=== PATIENT | female | born 1930 | race Caucasian/White ===

== ENCOUNTER 2017-12-25 06:32 | Day surgery (SDC) | payer MEDICARE ==
[~2017-12-25] VITALS: Ht 157.5 cm; Wt 92.8 kg
[~2017-12-25 06:32] MED LIST: ALBU8I INH; ALLO100T PO; ALPR0.25 PO; CARD120C4 PO; ENAL20TA PO; FURO20TA PO; HYDR-3580 PO; K-TA10TA5 PO; LEVO150T46 PO; METO50TA PO; NIAC500T18 PO; PARO20TA PO; RANI150T PO; VITA20002 PO
[2017-12-25] MEDS ORDERED: IOHEXOL 350 MG/ML 10 ML VIAL (for RAD DIAG) IVCONTRAST ONE (06:33)
[2017-12-25] MEDS ORDERED: IOHEXOL 350 MG/ML 50 ML BTL (for Cath Lab) OTHER ONE (06:33)
[2017-12-25 07:13] VITALS: BP 169/81; PULSE 60; RESP 20; TEMP 98.5; O2SAT 92
[2017-12-25] MEDS ORDERED: OXYGEN NAS.CANULA (07:45)
[2017-12-25] MEDS ORDERED: CART120C PO (07:45)
[2017-12-25] MEDS ORDERED: ENOX30P SQ (07:45)
[2017-12-25] MEDS ORDERED: VENTAER INH (07:45)
[2017-12-25] MEDS ORDERED: LEVO125T4 PO (07:45)
[2017-12-25] MEDS ORDERED: ALBU.5I NEB (07:45)
[2017-12-25] MEDS ORDERED: ALPR0.25 PO (07:45)
[2017-12-25] MEDS ORDERED: METO50TA PO (07:45)
[2017-12-25] MEDS ORDERED: POTA10TA2 PO (07:45)
[2017-12-25] MEDS ORDERED: VITATAB43 PO (07:45)
[2017-12-25] MEDS ORDERED: WARF4TAB52 PO (07:45)
[2017-12-25] MEDS ORDERED: ALLO300T2 PO (07:45)
[2017-12-25] MEDS ORDERED: UMEC1INH INH (07:45)
[2017-12-25] MEDS ORDERED: FURO20TA PO (07:45)
[2017-12-25] MEDS ORDERED: WARF-58 PO (07:45)
[2017-12-25] MEDS ORDERED: RANI150T PO (07:45)
[2017-12-25] MEDS ORDERED: LISI-515 PO (07:45)
[2017-12-25] MEDS ORDERED: VITA2000 PO (07:45)
[2017-12-25] MEDS ORDERED: WARF4TAB51 PO (07:45)
[2017-12-25] MEDS ORDERED: PARO20TA2 PO (07:45)
[2017-12-25] MEDS ORDERED: IPRA0.06 (07:45)
--- NOTE | 2017-12-25 08:17 | PD.FRAIL ---
Date: Dec 25, 2017 Height: 157.48 cm Weight: 92.8 kg Assessment Performed: Outpatient Albumin 3.2 Hart Activities Daily Living Hart ADL Score: Bathing(bathes self/help in single area): [place] (1), Dressing(gets/puts clothes on self): [place] (1), Toileting(goes without help): [place] ( 1), Transferring(unassisted or mech aides): [place] (1), Continence( complete self-control): [place] (1), Feeding(self, prep by another allowed) : [place] (1), Total: 6 Pass/Fail: Pass (LIVE ALONE, STILL DRIVES) Accounts Payable Bookkeeper Strength Grasp 1: 14 Grasp 2: 18 Grasp 3: 18 Average: 16.7 Pass/Fail: Fail 15-Foot Walk 15-Foot Walk (seconds): 10.2 (USES WALKING CANE) Pass/Fail: Fail Total Frailty Total Frailty (out of 4): 3 Frailty Index Score Reference Accounts Payable Bookkeeper Strength: BMI: <=23 Cutoff for associate professor physician strength(Kg): <=17 BMI: 23.1-26 Cutoff for associate professor physician strength(Kg): <=17.3 BMI: 26.1-29 Cutoff for associate professor physician strength(Kg): <=18 BMI: >29 Cutoff for associate professor physician strength(Kg): <=21 15-Foot Walk: Height: <=159 cm 15-Foot Walk Cutoff Time: >=7 seconds Height: >159 cm 15-Foot Walk Cutoff Time: >=6 seconds Prudence Chan RN Dec 25, 2017 08:17
--- NOTE | 2017-12-25 09:23 | RADRPT ---
EXAM DATE/TIME: 12/25/2017 08:25 [facility] COMPARISON: No previous studies available for comparison. INDICATIONS : Evaluate for pneumonia, pneumothorax and communicative disease. Pre-op for cardiac catherization. MEDICAL HISTORY : Hypertension. Chronic obstructive pulmonary disease. SURGICAL HISTORY : Total left hip arthroplasty. Left rib resection. Left kidney stone removal. ENCOUNTER: Initial ACUITY: 1 day PAIN SCORE: 0/10 LOCATION: chest FINDINGS: A single view of the chest demonstrates the lungs to be symmetrically aerated without evidence of mas s, infiltrate or effusion. There is hyperaeration bilaterally. The heart size is enlarged. There is a pacemaker overlying the left chest.. Osseous structures are intact. CONCLUSION: 1. No acute intrathoracic disease. 2. Hyperaeration suggestive of COPD 3. Compensated cardiomegaly Sal Hugo MD on December 25, 2017 at 9:21 Board Certified Radiologist. This report was verified electronically.
[2017-12-25] MEDS ORDERED: HEPARIN-NS/PF FLUSH BAG 2,000 ML IV FLUSH ONE (10:12)
[2017-12-25] MEDS ORDERED: NITROGLYCERIN INJ 0 ML ONE (10:12)
[2017-12-25] MEDS ORDERED: HEPARIN SODIUM - IV 10,000 UNITS/10 ML VIAL ONE (10:12)
[2017-12-25] MEDS ORDERED: SODIUM CHLOR 0.9% 250 ML INJ 250 ML IV PRN (11:00)
[2017-12-25] MEDS ORDERED: LORazepam 2 MG/ML VIAL IV PUSH PRN (11:00)
[2017-12-25] MEDS ORDERED: ATROPINE SULFATE 1 MG/ML VIAL IV PUSH PRN (11:00)
[2017-12-25] MEDS ORDERED: METOCLOPRAMIDE HCL 10 MG/2 ML VIAL IV PUSH PRN (11:00)
[2017-12-25] MEDS ORDERED: LIDOCAINE HCL 1% 50 ML VIAL INFIL PRN (11:00)
--- NOTE | 2017-12-25 11:27 | MA ---
cc: Rolando Quispe MD DATE: 12/25/2017 INDICATION: Aortic stenosis. PROCEDURES PERFORMED: 1. Fluoroscopy with interpretation. 2. Coronary angiography. 3. Right heart catheterization. METHOD: The risks, benefits and alternatives discussed with the patient. The patient understood and consented to the procedure. The patient was brought into the catheterization labs and placed on the catheterization table. The right groin was prepped and draped in a sterile fashion. The right groin was anesthetized with 2% lidocaine. The right common femoral artery was cannulated and a 5-[place] 11 cm sheath was placed in the right femoral artery, 7-[place] 11 cm sheath was placed in the right femoral vein. RIGHT HEART CATHETERIZATION: A 7-[place] pulmonary arterial catheter was advanced to the right femoral venous sheath to the level of the right atrium under fluoroscopic guidance. Hemodynamics was performed in all chambers as well advanced into the pulmonary capillary wedge position: 1. Right atrial pressure measure at 17. 2. Right ventricular pressure measured at 62/0 mmHg. 3. Pulmonary arterial pressure measured 59/25 mmHg. 4. Pulmonary capillary wedge pressure measured at 20 mmHg. 5. Cardiac output 4.2 liters per minute. 6. Cardiac index 2.2 liters per minute per meter squared. CORONARY ANGIOGRAPHY: 1. Left main coronary is angiographically normal. 2. Left anterior descending coronary has a 50% eccentric stenosis proximally. The remainder of the vessel has mild luminal irregularities. Diagonal branch had mild luminal irregularities. 3. Left circumflex gives rise to an obtuse marginal branch with minor luminal irregularities. 4. The right coronary is a dominant vessel giving rise to a posterior descending branch. The right coronary has mild luminal irregularities. 5. He has mild to moderate proximal nonobstructive left anterior descending coronary stenosis. 6. Mildly elevated left and right-sided filling pressures with moderate to severe pulmonary hypertension and mildly reduced cardiac output and index. PLAN: We will consult cardiothoracic surgery for evaluation for surgical AVR versus transcatheter aortic valve replacement. Rolando Quispe MD MAN/DL , 11:05 AM , 11:26 AM
[2017-12-25] MEDS ORDERED: ONDANSETRON HCL 4 MG/2 ML VIAL IV PUSH PRN (12:00)
[2017-12-25] MEDS ORDERED: BACITRACIN OINT 0.9 GM PKT TOP ONE (12:00)
[2017-12-25] MEDS ORDERED: RESP: ALBUTEROL 2.5 MG/3 ML NEB (PRN) ONE (12:09)
[2017-12-25] MEDS ORDERED: RESP: ALBUTEROL 2.5 MG/3 ML NEB (PRN) NEB (12:30)
--- NOTE | 2017-12-25 16:20 | PD.CAR.PN ---
CVT Progress Note Subjective/Hospital Course: pt seen and evaluated, sts data discussed with pt/ full consult to follow RISK SCORES About the STS Risk Calculator Procedure: AV Replacement Risk of Mortality: 6.679% Morbidity or Mortality: 27.525% Long Length of Stay: 15.751% Short Length of Stay: 10.472% Permanent Stroke: 2.49% Prolonged Ventilation: 20.181% DSW Infection: 0.336% Renal Failure: 7.24% Reoperation: 9.21% Objective: Vital Signs Date Time Temp Pulse Resp B/P (MAP) Pulse Ox O2 Delivery O2 Flow Rate FiO2 12/25/17 11:15 94 Nasal Cannula 2.00 12/25/17 07:13 98.5 60 20 169/81 (110) 92 Labs: Laboratory Tests Test 12/25/17 09:00 12/25/17 11:25 Albumin 3.2 GM/DL (3.4-5.0) Nasal Screen MRSA (PCR) MRSA NOT DETECTED (NOT Aurora Simmons Dec 25, 2017 16:20
--- NOTE | 2017-12-25 17:10 | MB ---
cc: Aurora Simmons DATE: 12/25/2017 HISTORY OF PRESENT ILLNESS: An 87-year-old female patient of Dr. Roly Schaeffer and Dr. Rolando Quispe who has history of aortic stenosis with increasing shortness of breath and lightheadedness for the past year, worsening aortic valve area. The last aortic valve area was 0.8, mean gradient of 46, a peak gradient of 66. The patient does live alone. She is not very active. She does still drive. She uses a walker and sometimes a cane. She underwent cardiac catheterization today, which showed nonobstructive disease. She did have a 50% stenosis in the LAD with an EF of 60%. We were consulted to evaluate for aortic valve replacement versus transcatheter aortic valve replacement. Her last echo also showed moderate tricuspid regurgitation and mild mitral regurgitation. PAST MEDICAL HISTORY: Paroxysmal atrial fibrillation, aortic stenosis, hypertension; she has a dual-chamber pacemaker with tachy-nasra syndrome, therefore the pacer in situ; history of pulmonary emboli, DVT. She has been on Eliquis. She has recently been on the Lovenox, will need a Lovenox bridge for any TAVR workup. Other history includes COPD, degenerative disk disease, gastroesophageal reflux disease, hyperlipidemia, hypothyroidism, osteopenia, history of transient ischemic attack. PAST SURGICAL HISTORY: Anal fistulectomy. She has had a breast biopsy, skin biopsy. She has had a right knee patella fracture repair, colonoscopy, right middle finger surgery, hysterectomy, lithotripsy. SOCIAL HISTORY: She is , has a daughter that lives in [place], igoron that lives in [place]. She did smoke for about 30 years. She quit 20 years ago. ALLERGIES: INCLUDE ZITHROMAX. HOME MEDICATIONS: Include Ellipta, Ventolin, Albuterol. She has currently been on the Lovenox since she was on Coumadin at home to bridge for her catheterization today, metoprolol, Diltiazem, lisinopril, Paxil, Xanax, potassium, Lasix, Zantac, levothyroxine, allopurinol. REVIEW OF SYSTEMS: GENERAL: No night sweats, fever, heat and cold intolerance. SKIN: No psoriasis, itching or hives. HEENT: No blurred vision, hearing loss. RESPIRATORY: Positive for shortness of breath. CARDIOVASCULAR: No chest pain. No paroxysmal nocturnal dyspnea. She has chronic lower extremity edema. GASTROINTESTINAL: No diarrhea or vomiting. GENITOURINARY: No burning, frequency, urgency. CENTRAL NERVOUS SYSTEM: History of transient ischemic attack. ENDOCRINOLOGY: Positive for hypothyroidism. PHYSICAL EXAMINATION: VITAL SIGNS: Blood pressure 160/80, heart rate is 60, temperature max 98.5, O2 saturation 94 on 2 liters. GENERAL: The patient is awake, alert, in no acute distress. HEENT: Head is normocephalic, atraumatic. Pupils equal and reactive. Oral mucosa pink, moist. NECK: Supple. No JVD. HEART: Sounds S1, S2, with a grade II/ systolic murmur best heard on the left sternal border. LUNGS: Clear to auscultation. No wheezes, rales or rhonchi. ABDOMEN: Obese, soft, nontender, no masses or organomegaly. EXTREMITIES: Reveal trace edema with some chronic venous stasis. LABORATORY WORK: Shows albumin 3.2, sodium 144, potassium 4.5, BUN of 15, creatinine 0.90, glucose 99, calcium 9.7. Hemoglobin 12, hematocrit of 38, white cell count of 8, platelet count of 295. STS risk score is 6.79. IMAGING STUDIES: Chest x-ray: No acute intrathoracic disease, suggestion of COPD, cardiomegaly. IMPRESSION: This is an 87-year-old female with STS risk score of 6.6. Her comorbidities include obesity, limited mobility, congestive heart failure, severe aortic stenosis, paroxysmal atrial fibrillation, hypertension, also chronic obstructive pulmonary disease. PLAN: At this time, recommendation is for transcatheter aortic valve replacement. The patient will need also be seen by our partner, Dr. Truong for further evaluation. A TAVR scan is also pending. ARTEMIO Jordan MD JRT/KEVIN , 04:28 PM , 05:08 PM
[2017-12-25 20:04] LABS: BILIRUBIN, URINE NEG (NEG); BLOOD, URINE NEG (NEG); GLUCOSE,URINE NEG (NEG); KETONE, URINE NEG (NEG); NITRITE,URINE NEG (NEG); SQUAMOUS EPITHELIAL CELL URINE 1 /hpf (0-5); URINE COLOR YELLOW (YELLW/STRAW); URINE LEUKOCYTE ESTERASE NEG (NEG)
--- NOTE | 2017-12-25 23:38 | RADRPT ---
EXAM DATE/TIME: 12/25/2017 17:49 [facility] COMPARISON: No previous studies available for comparison. INDICATIONS : Evaluate aortic valve IV CONTRAST: 90 cc Omnipaque 350 (iohexol) IV RADIATION DOSE: 12.29 CTDIvol (mGy) MEDICAL HISTORY : Cardiovascular disease. Hypertension. Chronic obstructive pulmonary disease.Asthma SURGICAL HISTORY : Pacemaker. ENCOUNTER: Initial ACUITY: 1 day PAIN SCALE: 0/10 LOCATION: CTA TAVRS TECHNIQUE: Volumetric scanning was performed using a multi-row detector CT scanner. The data was post processed with a variety of visualization algorithms including full volume maximum intensity projection, multi -planar sliding thin slab reformation, curved planar reformation, and surface rendering techniques. Using automated exposure control and adjustment of the mA and/or kV according to patient size, radiat ion dose was kept as low as reasonably achievable to obtain optimal diagnostic quality images. DIC OM format image data is available electronically for review and comparison. FINDINGS: CARDIAC: The coronary system is right dominant. There is calcification of the left main coronary artery and t he LAD. There is calcification at the origin of the right coronary artery. Otherwise the coronary ves sels appear grossly intact. Aortic valve calcifications are present. AORTIC ROOT/VALVE: 3 cusps are evident with calcifications. The aortic root measures 3.4 cm. Mid thoracic descending aorta measures 3.4 cm with calcifications. THORACIC AORTA: Origin of the great vessels is normal. No evidence of aneurysm, mural thrombus, dissection, or steno sis. Calcifications are present. ABDOMINAL AORTA: No evidence of aneurysm, mural thrombus, dissection, or stenosis. Arterial calcifications are seen th roughout. CELIAC ARTERY: Celiac artery is widely patent. SMA: Superior mesenteric artery is widely patent. RIGHT RENAL ARTERY: Right renal artery is widely patent. LEFT RENAL ARTERY: Left renal artery is widely patent. RIGHT COMMON ILIAC: No evidence of aneurysm, mural thrombus, dissection, mural calcification, or stenosis. The common fe moral measures 8 mm. LEFT COMMON ILIAC: No evidence of aneurysm, mural thrombus, dissection, mural calcification, or stenosis. The common fe moral measures 9 mm. There is mild calcified plaque at the left common femoral artery THORAX: There is mild linear atelectasis or scarring at the posterior lower lobes. There is a pacemaker in pl rachel. ABDOMEN: There is a 4.1 cm low density mass at the lateral aspect of the liver likely related to cystic change . There is a 5 cm enhancing mass seen at the inferior lateral aspect the right lobe of the liver. The re is mild cystic change of the kidneys PELVIS: There is a 6.7 cm cystic mass of the left adnexa. The patient status post hysterectomy. Diverticula s een throughout the colon being most prominent in the sigmoid region. There is a left hip prosthesis p resent. CONCLUSION: 1. Atherosclerotic calcifications seen throughout. Including at the left main, LAD, and at the origin of the right coronary artery. 2. Aortic valve calcifications. 3. No aneurysm or significant narrowing of the aorta, common iliac, external iliac, or common femora l arteries is seen. 4. 5 cm enhancing hepatic mass. This is nonspecific. There is transient enhancement could have this a ppearance. Other masses including hepatocellular carcinoma could have this appearance. There does gabriela ear to be cystic change of the liver. 5. 6.7 cm cyst of the left adnexa likely related to a left ovarian cyst. 6. Colonic diverticula. Domingo Panchal MD on December 25, 2017 at 23:23 Board Certified Radiologist. This report was verified electronically.
--- NOTE | 2017-12-26 08:37 | RSPPFT ---
DATE OF PROCEDURE: 12/25/17 COMMENTS: Spirometry with FVC of 1.0 predicted 2.1, FEV1 of 0.5 predicted 1.3, FEV1/FVC ratio 52% predicted 80%. IMPRESSION: On the basis of the above, patient has an obstructive lung defect. Post-bronchodilator values and lung volumes have not been measured but if clinically indicated can be carried out to rule out an associated restrictive defect.
== END 2017-12-25 19:30 | disposition home or self-care (01) ==
LOC: HCAT 06:32 → HDIC 06:32 → HCAT 19:30
PROVIDERS: ATTEND Internal Medicine
DX: I35.0 Nonrheumatic aortic (valve) stenosis (principal); I25.10 Atherosclerotic heart disease of native coronary artery without angina pectoris; I11.0 Hypertensive heart disease with heart failure; I50.9 Heart failure, unspecified; I48.0 Paroxysmal atrial fibrillation; E78.5 Hyperlipidemia, unspecified; E03.9 Hypothyroidism, unspecified; J44.9 Chronic obstructive pulmonary disease, unspecified; K21.9 Gastro-esophageal reflux disease without esophagitis; K57.30 Diverticulosis of large intestine without perforation or abscess without bleeding; M85.80 Other specified disorders of bone density and structure, unspecified site; E66.9 Obesity, unspecified; Z68.37 Body mass index [BMI] 37.0-37.9, adult; Z86.711 Personal history of pulmonary embolism; Z79.01 Long term (current) use of anticoagulants; Z86.73 Personal history of transient ischemic attack (TIA), and cerebral infarction without residual deficits; Z95.0 Presence of cardiac pacemaker; Z90.710 Acquired absence of both cervix and uterus
CPT/HCPCS: 71045; 74174; 81001; 82040; 82810; 86850; 86900; 86901; 87641; 93456; 94010; 94664; C1760; C1769; C1893; G0269; J1644; J7613; Q9967

== ENCOUNTER 2018-01-14 11:30 | Inpatient (IN) | payer MEDICARE ==
[~2018-01-14] VITALS: Ht 154.9 cm; Wt 90.0 kg
[~2018-01-14 11:30] MED LIST changes: +ALBU.5I NEB; -ALBU8I INH; -ALLO100T PO; +ALLO300T2 PO; -CARD120C4 PO; +CART120C PO; -ENAL20TA PO; -HYDR-3580 PO; +IPRA0.06; -K-TA10TA5 PO; +LEVO125T4 PO; -LEVO150T46 PO; +LISI-515 PO; -NIAC500T18 PO; +OXYGEN NAS.CANULA; -PARO20TA PO; +PARO20TA2 PO; +POTA10TA2 PO; +UMEC1INH INH; +VENTAER INH; +VITA2000 PO; -VITA20002 PO; +VITATAB43 PO; +WARF-58 PO; +WARF4TAB51 PO
[2018-02-26] MEDS ORDERED: ENOX100P SQ (10:32)
[2018-03-11 11:20] VITALS: BP 156/78; PULSE 61; RESP 18; O2SAT 97
[2018-03-11] MEDS: SODIUM CHLOR 0.9% 1000 ML 1,000 ML IV SCH ×2 (11:30→20:55)
[2018-03-11] MEDS ORDERED: POVIDONE IODINE 5% (ANTISEPSIS KIT) EACH NARE PRN (11:30)
[2018-03-11] MEDS ORDERED: ceFAZolin 2 GM PREMIX 50 ML IV PRN (11:30)
[2018-03-11] MEDS ORDERED: ASPIRIN 325 MG TAB PO SCH (11:30)
[2018-03-11] MEDS ORDERED: CHLORHEXIDINE GLUCONATE 2 % 1 PACK (2 CLOTHS) TOPICAL PRN ×2 (11:30→11:45)
[2018-03-11] MEDS ORDERED: MUPIROCIN 2% OINT 1 APPLIC/GM SYRINGE EACH NARE PRN (11:30)
[2018-03-11] MEDS ORDERED: LACTATED RINGER'S 1000 ML IV PRN (11:45)
[2018-03-11] MEDS ORDERED: METOPROLOL TARTRATE 25 MG TAB PO PRN (11:45)
[2018-03-11] MEDS ORDERED: POVIDONE IODINE 5% (ANTISEPSIS KIT) 4 APPLICATIONS EACH NARE PRN (11:45)
[2018-03-11] MEDS ORDERED: SODIUM CHLORID 0.9% 500 ML IV PRN (11:45)
[2018-03-11] MEDS ORDERED: NEOSTIGMINE 5 MG/5 ML SYRINGE IV PUSH ONE (12:00)
[2018-03-11] MEDS ORDERED: ePHEDrine/NS 25 MG/5 ML SYRINGE IV ONE (12:00)
[2018-03-11] MEDS ORDERED: EPINEPHrine HCL (1:1000) 1 MG/ML VIAL IV ONE (12:00)
[2018-03-11] MEDS ORDERED: GLYCOPYRROLATE 1 MG/5 ML SYRINGE IV PUSH ONE (12:00)
[2018-03-11] MEDS ORDERED: ROCURONIUM INJ 50 MG/5 ML SYRINGE IV PUSH ONE (12:00)
[2018-03-11] MEDS ORDERED: PROPOFOL 200 MG/20 ML AMP IV ONE (12:00)
[2018-03-11] MEDS ORDERED: PHENYLEPH/NS 1000 MCG/10 ML SYR IV ONE (12:00)
[2018-03-11] MEDS ORDERED: HEPARIN SODIUM - IV 10,000 UNITS/10 ML VIAL ONE (12:32)
[2018-03-11] MEDS ORDERED: PROTAMINE SULFATE 50 MG/5 ML VIAL ONE (12:32)
[2018-03-11] MEDS ORDERED: fentaNYL CITRATE 250 MCG/5 ML AMP ONE (12:50)
--- NOTE | 2018-03-11 13:24 | MH ---
cc: Rolando Quispe MD DATE OF ADMISSION: 03/11/2018 INDICATION: Aortic stenosis. INDICATIONS: Aortic stenosis. HISTORY OF PRESENT ILLNESS: This is an 87-year-old female. She has a history of pacemaker, COPD, atrial fibrillation on anticoagulation therapy, who was evaluated secondary to severe aortic valve stenosis and recommended for transcatheter aortic valve replacement. She also was found to have a liver mass incidentally and underwent biopsy which showed a hepatocellular carcinoma. She was then evaluated by oncology and felt to have a life expectancy greater than 1 year and recommended to proceed with transcatheter aortic valve replacement. She is now here for that procedure. PAST MEDICAL HISTORY: 1. Severe aortic valve stenosis. 2. Tachybrady syndrome, status post permanent pacemaker. 3. COPD. 4. Chronic kidney disease. 5. Pulmonary embolism. 6. Hypothyroidism. 7. Diverticulosis. 8. Atrial fibrillation. 9. Anxiety. 10. GERD. 11. Hypertension. 12. Osteoarthritis. 13. Hypothyroidism. 14. Hepatocellular carcinoma. MEDICATIONS: 1. Coumadin. 2. Ranitidine. 3. Paroxetine. 4. Metoprolol. 5. Lisinopril. 6. Levothyroxine. 7. Ipratropium. 8. Furosemide. 9. Cardia-XT. 10. Allopurinol. ALLERGIES: AZITHROMYCIN. FAMILY HISTORY: Denies any family history of early coronary disease or sudden cardiac . SOCIAL HISTORY: Smoked 40 years ago a pack a day. Also smoked for 40 years, but quit 20 years ago. Denies any alcohol or drug use. REVIEW OF SYSTEMS: A 12-point review of systems was performed, negative unless as otherwise noted in the history of present illness. PHYSICAL EXAMINATION: VITAL SIGNS: Pulse 61, blood pressure 156/78 mmHg. GENERAL: Alert and oriented x 3 in no acute distress. HEENT: Shows pupils reactive to light and accommodation. Extraocular movements are intact. NECK: No elevation in jugular venous distention. No thyromegaly or lymphadenopathy. No carotid bruits. LUNGS: Clear to auscultation bilaterally. CARDIOVASCULAR: Regular rate and rhythm with a 3/6 crescendo/decrescendo murmur at the right sternal border. ABDOMEN: Nontender, nondistended with good bowel sounds. No hepatosplenomegaly. EXTREMITIES: Show no cords or edema. Good peripheral pulses. NEUROLOGIC: Cranial nerves intact. Motor System grossly intact. LABORATORY DATA: WBC 12.3, hemoglobin is 13.0, platelet count 414. INR is 1.3. Sodium 135, potassium 4.6, BUN is 19, creatinine 1.25. PREOPERATIVE WORKUP: STS score 8.5%. [place] [employer] functional class 3/4. BMI is 25 mg. Frailty is 1/4. Sinus rhythm, atrial ventricular paced. Pulmonary Function Test 12/25/2017: Severe obstructive lung disease with an FEV1 of 0.54. Echocardiogram 11/04/2014: Shows Peak TR velocity 4.07 meters per second, mean gradient 46 mmHg with a calculated aortic valve area 0.8 cm2. Ejection fraction 50-55%. There is mild aortic, mitral and tricuspid regurgitation. CORONARY ANGIOGRAPHY: 12/25/2017 left anterior descending coronary artery has a 50% stenosis proximally. CT ANALYSIS: Performed on 12/25/2017 showed an annulus diameter of 21.3, long annulus diameter 24.6, annular area of 414, sinus Valsalva diameter 37.7, sinotubular junction 33.2. Left coronary height 13.3, right coronary height 17.0 mm and a right minimal luminal diameter of the right common iliac is 7.4 mm and the left is 6.5 cm. PLAN: Severe aortic valve stenosis cleared by oncology to proceed. The patient was seen and evaluated for surgical aortic valve replacement felt to be high risk. We will plan for an Brizuela 23 mm S3 transcatheter aortic valve replacement via a right common femoral arterial approach. Risks, benefits, and alternatives discussed with the patient. The patient understood and consented to the procedure. Rolando Quispe MD MAN/DL , 12:51 PM , 01:22 PM
[2018-03-11] MEDS ORDERED: IOHEXOL 350 MG/ML 50 ML BTL (for RAD DIAG) IVCONTRAST ONE (14:24)
--- NOTE | 2018-03-11 14:37 | PD.OP ---
cc: Rola Garner MD; Rolando Quispe MD Operative Report Date of Surgery: Mar 11, 2018 Preoperative Diagnosis: (1) Aortic stenosis (2) Diastolic CHF (3) COPD (chronic obstructive pulmonary disease) Postoperative Diagnosis: same Procedure: Transcatheter aortic valve replacement with a 23 Tracey 3 tissue valve Balloon aortic valvuloplasty with a 20 x 4 Brizuela balloon Bilateral percutaneous access femoral arteries with Preclose closure on right Left femoral venous access Aortography Fluoroscopy Anesthesia: Dr. Estevez Surgeon: Rola Garner Co-surgeon - Dr. Quispe Helper/Driver(s): none Operation and Findings: The risks, benefits, complications, treatment options, and expected outcomes were discussed with the patient. The possibilities of reaction to medication, pulmonary aspiration, perforation of viscus, bleeding, recurrent infection, the need for additional procedures, failure to diagnose a condition, and creating a complication requiring transfusion or operation were discussed with the patient. The patient concurred with the proposed plan, giving informed consent. The site of surgery properly noted/marked. The patient was taken to hybrid operating room, identified as Bethanie Angeles and the procedure verified as Transcatheter Aortic Valve Replacement. A Time Out was held and the above information confirmed. Standard monitoring lines and Cohen catheter were placed. General anesthesia was induced. The patient was prepped and draped in a sterile fashion. Initially, left femoral arterial and venous access was acquired using a Seldinger percutaneous technique. The details of this procedure were dictated under separate note by cardiology. Once a pigtail was positioned in the aortic annulus and a temporary transvenous pacemaker wire was placed in the right ventricular apex and tested, the right femoral artery was accessed using a needle followed by a guidewire under fluoroscopic guidance. The patient was heparinized and 2 Perclose devices deployed for later closure. Serial dilators were used to dilate the right femoral artery to 14 Lao caliber. The Brizuela sheath was then inserted up to the distal abdominal aorta. Arch aortography was performed to define the implant view. A balloon aortic valvuloplasty was then performed using a 20 x 4 balloon with the patient being paced at 180 beats per minute. A 23 Brizuela Tracey 3 transcatheter aortic valve was then positioned in the annulus and deployed with the patient being paced at 180 beats per minute. Following deployment, the valve apparatus was withdrawn and arch aortography and AJ were performed to assess the valve. The valve had no significant perivalvular leaks. Gradients were then measured and the sheath was removed. Peerclose sutures were secured with good hemostasis. Protamine was administered. Sterile dressings were placed. At the end of the operation, all sponge, instruments, and needle counts were correct. The patient was transferred to the CVICU in stable condition. Findings: Uneventful deployment. Preserved LV function. Implants: 23 Tracey 3 tissue valve Complications: none Disposition: to CVICU in stable condition Rola Garner MD Mar 11, 2018 14:37
[2018-03-11] MEDS ORDERED: SODIUM CHLOR 0.9% 1000 ML INJ 1,000 ML IV SCH (14:40)
[2018-03-11] MEDS ORDERED: ACETAMINOPHEN 325 MG TAB PO PRN (14:45)
[2018-03-11] MEDS ORDERED: GLUCAGON 1 MG/ML VIAL OTHER PRN (14:45)
[2018-03-11] MEDS ORDERED: MISC INFORMATION OTHER ONE (14:45)
[2018-03-11] MEDS ORDERED: CLOPIDOGREL 300 MG TAB PO ONE (14:45)
[2018-03-11] MEDS ORDERED: DEXTROSE 50% IN WATER 50 ML VIAL(D50) IV PUSH PRN (14:45)
[2018-03-11] MEDS ORDERED: BENZOCAINE-MENTHOL (SUGAR FREE) 15 MG-3.6 MG LOZENGE BUCCAL PRN (14:45)
[2018-03-11] MEDS ORDERED: ATROPINE SULFATE 1 MG/ML VIAL IV PUSH PRN (14:45)
--- NOTE | 2018-03-11 14:55 | PD.CAR.PN ---
CVT Progress Note Subjective/Hospital Course: 87-year-old female patient of Dr. Roly Schaeffer and Dr. Rolando Quispe intially seen 12/25/17 who has history of aortic stenosis with increasing shortness of breath and lightheadedness for the past year, worsening aortic valve area. The last aortic valve area was 0.8, mean gradient of 46, a peak gradient of 66. The patient does live alone. She is not very active. She does still drive. She uses a walker and sometimes a cane. She underwent cardiac catheterization today, which showed nonobstructive disease. She did have a 50% stenosis in the LAD with an EF of 60%. We were consulted to evaluate for aortic valve replacement versus transcatheter aortic valve replacement. Her last echo also showed moderate tricuspid regurgitation and mild mitral regurgitation. Pt was deemed a candidate for TAVR procedure PAST MEDICAL HISTORY: Paroxysmal atrial fibrillation, aortic stenosis, hypertension; she hasa dual-chamber pacemaker with tachy-nasra syndrome, history of pulmonary emboli, DVT. She has been on Eliquis. COPD, degenerative disk disease, gastroesophageal reflux disease, hyperlipidemia, hypothyroidism, osteopenia, history of transient ischemic attack. 03/11 pt admitted electively for TAVR Objective: Vital Signs Date Time Temp Pulse Resp B/P (MAP) Pulse Ox O2 Delivery O2 Flow Rate FiO2 03/11/18 11:20 61 18 156/78 (104) 97 Aurora Simmons Mar 11, 2018 14:55
[2018-03-11 15:15] VITALS: BP_SYST 139; BP_SYST 154; BP_DIAS 53; BP_DIAS 62; PULSE 60; PULSE 88; RESP 18; TEMP 97.8; O2SAT 96
--- NOTE | 2018-03-11 16:15 | MA ---
cc: Rolando Quispe MD DATE: 03/11/2018 INDICATIONS: Severe aortic stenosis. PROCEDURES PERFORMED: 1. Transcatheter aortic valve replacement. 2. Temporary transvenous pacemaker placement. 3. Transesophageal echocardiogram. 4. Aortic valvuloplasty. 5. Left heart catheterization. METHOD: Risks, benefits and alternatives were discussed with the patient. The patient understood and consented to the procedure. The patient was brought into the catheterization lab, placed on the catheterization table. The bilateral groins were prepped and draped in sterile fashion. The left groin was anesthetized with 2% lidocaine. The left common femoral artery was cannulated and a 5-Turkish, 11-cm sheath was placed. Left femoral vein was accessed and a 5-Turkish, 11-cm sheath was placed. Right common femoral artery was accessed under angiographic and fluoroscopic guidance and a micropuncture sheath was placed, followed by a digital subtraction angiography which confirmed appropriate placement. An 8-Turkish sheath was then advanced, followed by the 14-Turkish Brizuela sheath. Two Perclose devices were deployed in anticipation of closure at the end of the case. Heparin was administered throughout the entire procedure to maintain appropriate anticoagulation. ASCENDING AORTOGRAPHY: A 5-Turkish angled pigtail catheter was advanced to the ascending aorta and into the noncoronary cusps. Ascending aortography was performed, which showed all 3 cusps in parallel and a view of left anterior oblique 36 and 5 cranial was used for the deployment of the device. AORTIC VALVULOPLASTY: A 20 mL Brizuela balloon was prepped. A 6-Turkish Amplatz catheter was advanced to the ascending aorta. A 0.035-inch Amplatz Super Stiff straight-tip wire was then advanced across the aortic valve and into the left ventricle. A 6-Turkish catheter was advanced into the left ventricle. A 0.035-inch Confida wire was then advanced into the apex of the left ventricle and the Amplatz catheter removed. A 20 mL aortic valvuloplasty balloon by Gelacio was advanced up and over the arch. With rapid pacing the aortic valvuloplasty balloon was then deployed. Repeat transesophageal echocardiogram revealed mild to moderate aortic insufficiency. No pericardial effusion. TRANSCATHETER AORTIC VALVE REPLACEMENT: A 23 mm VADIM S3 Brizuela bioprosthetic valve was then prepped and advanced over the wire and across the douglas aortic valve. Repeat ascending aortography revealed good placement. Under rapid pacing, the bioprosthetic valve was then slowly deployed. Repeat transesophageal echocardiogram revealed appropriate placement with trace perivalvular leak and no significant gradient. POST-TRANSESOPHAGEAL ECHOCARDIOGRAM INTRAOPERATIVE FINDINGS: 1. Aortic valve area of 1.6 cm2. 2. Mean aortic valve gradient 4 mmHg. 3. Peak velocity 1.65 meters per second. 4. No aortic insufficiency. IMPRESSION: 1. Successful transcatheter aortic valve replacement with Brizuela VADIM S3 bioprosthetic valve. 2. Successful aortic valvuloplasty. 3. Successful utilization of temporary transvenous pacemaker and transesophageal echocardiography. PLAN: The patient will be initiated on Plavix. Monitor closely for any post-procedural complications. Left common femoral artery and vein were closed with 5-Turkish Mynx devices. Right common femoral artery was then closed with 2 Perclose devices with good hemostasis. The patient will be extubated and moved over to the Cardiac Intensive Care Unit. We will obtain a limited transthoracic echocardiogram tomorrow. We will monitor blood pressure and any post-procedural arrhythmia. Rolando Quispe MD MAN/SB , 02:40 PM , 03:13 PM
--- NOTE | 2018-03-11 18:02 | PD.PROCEDR ---
Procedure Note Procedure Procedure: Transesophageal Echocardiography Diagnosis: Severe aortic stenosis Indications: Perioperative planning for transcatheter aortic valve replacement Consent: Obtained Anesthesia: General endotracheal anesthesia Description of the Procedure: The patient was sedated and mechanically ventilated. The echo probe was inserted easily and without resistance. At the conclusion of the procedure, the echo probe was removed. Please see detailed echocardiogram report for formal findings. Preliminary Findings (not confirmed): Pre-procedure: 1) grossly preserved biventricular function 2) severe aortic stenosis 3) mild aortic insufficiency 4) trace mitral regurgitation 5) no pericardial effusion 6) no evidence of intra-atrial shunting by color flow Doppler Post-procedure: 1) s/p successful placement of transcatheter aortic valve 2) no evidence of bioprosthetic valve stenosis 3) no perivalvular leak 4) mild mitral regurgitation 5) no pericardial effusion The patient tolerated the procedure well with no hemodynamic instability. There were no immediate complications noted. There was minimal EBL. I personally performed the procedure. Julius Olivas MD Mar 11, 2018 18:02
--- NOTE | 2018-03-11 18:05 | PD.CONS ---
[facility] Service Critical Care Medicine Consult Requested By Dr. Quispe Reason for Consult Perioperative management of medical comorbidities Primary Care Physician Roly Schaeffer MD History of Present Illness This is an 87-year-old female with a history of severe aortic stenosis who presents for elective transcatheter aortic valve replacement. She underwent uncomplicated replacement via common iliac approach. She arrives to the CVICU in stable condition extubated. She is tolerating dinner when I evaluated her. She denies chest pain, trouble breathing, nausea, vomiting, headache, eye pain. She does endorse moderate sore throat. Remainder of the review systems is negative unless otherwise stated. Review of Systems Constitutional: DENIES: Diaphoretic episodes, Fatigue, Fever, Weight gain, Weight loss, Chills, Dizziness Eyes: DENIES: Blurred vision, Diplopia, Eye inflammation, Eye pain, Vision loss Ears, nose, mouth, throat: COMPLAINS OF: Throat pain, DENIES: Tinnitus, Hearing loss, Vertigo, Nasal discharge, Hoarseness, Ear Pain Respiratory: DENIES: Cough, Wheezing, Sputum production, Shortness of breath Cardiovascular: DENIES: Chest pain, Syncope, Dyspnea on Exertion, PND, Lower Extremity Edema, Orthopnea Gastrointestinal: DENIES: Abdominal pain, Diarrhea, Nausea, Vomiting Neurologic: DENIES: Abnormal gait, Headache, Localized weakness Past Family Social History Allergies: Coded Allergies: azithromycin (Unverified Adverse Reaction, Severe, DIARRHEA, 02/25/18) Past Medical History Severe aortic stenosis Tachybradycardia syndrome status post permanent pacemaker COPD Chronic kidney disease, unknown stage Prior pulmonary embolism Hypothyroidism Diverticulosis Atrial for ablation Anxiety GERD Hypertension Osteoarthritis Hepatocellular carcinoma status post interventional embolization/radio frequency ablation Past Surgical History Anal fistulectomy Breast biopsy Skin biopsy Right knee patella fracture repair Colonoscopy Right middle finger surgery Hysterectomy Lithotripsy Reported Medications Warfarin 3 Mg Tab 3 Mg PO MTWTHF Warfarin 2 Mg Tab 2 Mg PO SASU Vitamin D3 (Cholecalciferol) 2,000 Unit Cap 2,000 Units PO DAILY Vitamin J84-Twatd Acid (Cobalamine Combinations) 500-400 Mcg Tab 1,000 Mcg PO DAILY Ventolin Hfa 18 GM Inh (Albuterol Sulfate) 90 Mcg/Act Aer 2 Puff INH Q4-6H PRN Ranitidine (Ranitidine HCl) 150 Mg Tab 150 Mg PO BID Potassium Chloride ER (Potassium Chloride) 10 Meq Tab 10 Meq PO BID Paroxetine (Paroxetine HCl) 20 Mg Tab 20 Mg PO DAILY [Oxygen] 2 Liter [place].CANULA HS Metoprolol Tartrate 50 Mg Tab 50 Mg PO BID Lisinopril 20 Mg Tab 20 Mg PO BID Levothyroxine (Levothyroxine Sodium) 125 Mcg Tab 125 Mcg PO DAILY Ipratropium [place] 42 Mcg (0.06 %) [place] 0.02 Inhaler NA Q4HR Incruse Ellipta Inh (Umeclidinium [place] Inh) 0.0625 Mg/Act Inh 62.5 Mcg INH DAILY Furosemide 20 Mg Tab 20 Mg PO DAILY Cartia Xt (Diltiazem ER 24 HR) 120 Mg Caper 120 Mg PO DAILY Alprazolam 0.25 Mg Tab 0.25 Mg PO Q4H PRN Allopurinol 300 Mg Tab 100 Mg PO DAILY Albuterol Neb (Albuterol Sulfate) 2.5 Mg/0.5 Ml Neb 2.5 Mg NEB Q4HR NEB PRN Note: The Albuterol Sulfate Inhalation Solution is concentrated and must be diluted. Read complete instructions carefully before using. Active Ordered Medications See MAR Family History Denies family history of coronary disease or sudden cardiac Social History Former smoker, [id number] history, quit 20 years ago. Denies alcohol or other substance abuse Physical Exam Vital Signs Vital Signs Date Time Temp Pulse Resp B/P (MAP) Pulse Ox O2 Delivery O2 Flow Rate FiO2 03/11/18 15:15 97.8 88 18 139/62 (87) 96 154/53 (86) 03/11/18 15:15 60 03/11/18 11:20 61 18 156/78 (104) 97 Physical Exam GENERAL: Elderly female, lying in bed, awake alert, no acute distress, sitting in bed HEENT: Normocephalic. Atraumatic. Pupils equal, round, reactive, conjugate. Mucous membranes are moist NECK: Trachea is midline. There is no JVD. right IJ introducer sheath in place , site is clean and dry, dressing intact. CHEST: unlabored. equal chest rise. nc o2. CARDIOVASCULAR: normal rate, regular rhythm. Paced rhythm with permanent pacemaker. ABDOMEN: Soft, nontender, nondistended. No guarding. MUSCULOSKELETAL: Pulses 2+. No peripheral edema. bilateral groin sites are clean and dry, no evidence of hematoma, dressing intact. distal LE pulses are Dopplerable. NEUROLOGICAL: RASS 0. follows commands. moves all extremities. no focal deficits. Assessment and Plan Assessment and Plan Assessment: 87-year-old female postop day 0 status post transcatheter aortic valve replacement via common iliac access. Admit ICU. Close urine output monitoring, frequent neurovascular checks. If she advances on pathway as I anticipate, will consider transfer out of ICU tomorrow. s/p TAVR via common illiac access 03/11 - anticoagulation per Dr. Quispe - mivf - close uop monitoring - frequent neurovascular checks - OOB after flat time - advance diet as tolerated Hypertension - restart home anti-hypertensives as needed - goal sbp < 180 Atrial fibrillation Tachy/nasra syndrome - has permanent pacemaker - restart home lopressor and diltiazem Depression - restart home paroxetine Hypothyroidism - restart home synthroid GERD - restart home h2 josee COPD - aggressive pulmonary toilet - nebs prn - wean o2 by nc for goal spo2 > 90% - OOB and ambulating CKD, unknown stage - mivf - monitor uop ICU electrolyte protocol SCDs Critical care medicine will continue to follow as long as patient remains in the CVICU. Julius Olivas MD Mar 11, 2018 18:05
[2018-03-11] MEDS ORDERED: MAGNESIUM SULFATE INJ 4 GM in SODIUM CHLORIDE 0.9% INJ 92 ML IV PRN (18:15)
[2018-03-11] MEDS ORDERED: POTASSIUM PHOSPHATE INJ 30 MMOL in SODIUM CHLOR 0.9% 250 ML INJ 250 ML IV PRN (18:15)
[2018-03-11] MEDS ORDERED: POTASSIUM CHLORIDE 25 MEQ EFFERVESCENT TAB PO PRN (18:15)
[2018-03-11] MEDS ORDERED: MAGNESIUM OXIDE 400 MG TAB PO PRN (18:15)
[2018-03-11] MEDS ORDERED: PHENOL 1.4% SOLN 180 ML BTL OROPHARYNG PRN (18:15)
[2018-03-11] MEDS ORDERED: POTASSIUM PHOSPHATE MONOBASIC 500 MG TAB PO PRN (18:15)
[2018-03-11] MEDS ORDERED: SODIUM PHOSPHATE INJ 30 MMOL in SODIUM CHLOR 0.9% 250 ML INJ 240 ML IV PRN (18:15)
[2018-03-11] MEDS ORDERED: POTASSIUM CHLOR 40 MEQ PREMIX 100 ML IV PRN ×2 (18:15)
[2018-03-11] MEDS ORDERED: POTASSIUM CHLOR 20 MEQ PREMIX 100 ML IV PRN ×2 (18:15)
[2018-03-11] MEDS ORDERED: RESP: ALBUTEROL 2.5 MG/IPRATROPIUM 0.5 MG NEB (PRN) INH (18:15)
[2018-03-11] MEDS ORDERED: MAGNESIUM SULFATE INJ 2 GM in SODIUM CHLORIDE 0.9% INJ 96 ML IV PRN (18:15)
[2018-03-11] MEDS ORDERED: POTASSIUM PHOSPHATE MONOBASIC 500 MG TAB PO/TUBE PRN (18:15)
[2018-03-11 20:00] VITALS: BP 91/52; PULSE 60; RESP 20; TEMP 97.6; O2SAT 96
[2018-03-11] MEDS: METOPROLOL TARTRATE 50 MG TAB PO SCH (20:34)
[2018-03-11] MEDS: POTASSIUM CHLORIDE 10 MEQ CONTROLLED RELEASE TAB PO SCH (20:34)
[2018-03-11] MEDS: LISINOPRIL 20 MG TAB PO SCH (20:34)
[2018-03-11 21:20] VITALS: O2SAT 97
[2018-03-11] MEDS: RESP: ALBUTEROL 2.5 MG/IPRATROPIUM 0.5 MG NEB (SCH) INH (21:21)
[2018-03-12] VITALS (10 sets, daily range): BP systolic 111–143; BP diastolic 50–67; PULSE 59–64; RESP 16–20; TEMP 97.3–98.2; O2SAT 95–100
[2018-03-12] MEDS: RESP: ALBUTEROL 2.5 MG/IPRATROPIUM 0.5 MG NEB (SCH) INH ×3 (03:46→16:00)
[2018-03-12 05:00] LABS: HEMATOCRIT 28.1 % (35.0-46.0); HEMOGLOBIN 9.5 GM/DL (11.6-15.3); MEAN CELL VOLUME 93.8 FL (80.0-100.0); MEAN CORPUSCULAR HEMOGLOBIN 31.7 PG (27.0-34.0); MEAN CORPUSCULAR HGB CONC 33.8 % (32.0-36.0); MEAN PLATELET VOLUME 8.9 FL (7.0-11.0); PLATELET COUNT 256 TH/MM3 (150-450); RED BLOOD COUNT 2.99 MIL/MM3 (4.00-5.30); RED CELL DISTRIBUTION WIDTH 14.7 % (11.6-17.2); WHITE BLOOD COUNT 12.3 TH/MM3 (4.0-11.0)
[2018-03-12] MEDS: SODIUM CHLOR 0.9% 1000 ML 1,000 ML IV SCH ×2 (05:09→11:30)
[2018-03-12 05:27] LABS: BICARBONATE 23.8 MEQ/L (21.0-32.0); CALCIUM 8.2 MG/DL (8.5-10.1); CREATININE 0.77 MG/DL (0.50-1.00)
[2018-03-12] MEDS ORDERED: LEVOTHYROXINE SODIUM 125 MCG TAB PO SCH (06:00)
--- NOTE | 2018-03-12 08:21 | HHI.DS ---
Discharge Summary Admission Date Mar 11, 2018 at 10:28 Discharge Date: Mar 12, 2018 Admitting Diagnosis Severe aortic stenosis (1) S/P total hip arthroplasty ICD Codes: Z96.60 - S/P total hip arthroplasty Status: Acute Procedures transcatheter aortic valve stenosis CBC/BMP: 03/12/18 0405 03/12/18 0405 Significant Findings Laboratory Tests Test 03/12/18 04:05 White Blood Count 12.3 TH/MM3 (4.0-11.0) Red Blood Count 2.99 MIL/MM3 (4.00-5.30) Hemoglobin 9.5 GM/DL (11.6-15.3) Hematocrit 28.1 % (35.0-46.0) Blood Urea Nitrogen 19 MG/DL (7-18) Calcium Level 8.2 MG/DL (8.5-10.1) Estimat Glomerular Filtration Rate 71 ML/MIN (>89) Imaging HEAD: Normocephalic. EYES: No scleral icterus. No injection or drainage. NECK: Supple, trachea midline. No JVD or lymphadenopathy. CARDIOVASCULAR: Regular rate and rhythm without murmurs, gallops, or rubs. RESPIRATORY: Breath sounds equal bilaterally. No accessory muscle use. GASTROINTESTINAL: Abdomen soft, non-tender, nondistended. MUSCULOSKELETAL: No cyanosis, or edema. BACK: Nontender without obvious deformity. No CVA tenderness. Hospital Course status post transcatheter aortic valve stenosis post operative course uncomplicated sitting up to chair without complaints PPM in place Pt Condition on Discharge: Good Discharge Disposition: Discharge Home Discharge Instructions DIET: Follow Instructions for: Heart Healthy Diet Activities you can perform: Weight Bearing as Josefina Follow up Referrals: Cardiology - 4 Weeks @ [facility] PCP Follow-up - 2 Weeks New Medications: Clopidogrel (Plavix) 75 Mg Tab 75 MG PO DAILY for TAVR, #30 TAB 1 Refill Continued Medications: Albuterol 18 GM Inh (Ventolin Hfa 18 GM Inh) 90 Mcg/Act Aer 2 PUFF INH Q4-6H PRN for SHORTNESS OF BREATH, #1 INHALER 0 Refills Albuterol Neb (Albuterol Neb) 2.5 Mg/0.5 Ml Neb 2.5 MG NEB Q4HR NEB PRN for WHEEZING, EA Note: The Albuterol Sulfate Inhalation Solution is concentrated and must be diluted. Read complete instructions carefully before using. Allopurinol (Allopurinol) 300 Mg Tab 100 MG PO DAILY for Gout, #30 TAB 0 Refills Alprazolam (Alprazolam) 0.25 Mg Tab 0.25 MG PO Q4H PRN for ANXIETY, TAB 0 Refills Cholecalciferol (Vitamin D3) 2,000 Unit Cap 2000 UNITS PO DAILY for Nutritional Supplement, #1 BOTTLE 0 Refills Cobalamine Combinations (Vitamin C25-Nvuet Acid) 500-400 Mcg Tab 1000 MCG PO DAILY for Nutritional Supplement, TAB 0 Refills Furosemide (Furosemide) 20 Mg Tab 20 MG PO DAILY, #30 TAB 0 Refills Ipratropium [place] (Ipratropium [place]) 42 Mcg (0.06 %) [place] 0.02 INHALER NA Q4HR Levothyroxine (Levothyroxine) 125 Mcg Tab 125 MCG PO DAILY for Thyroid, #30 TAB 0 Refills Lisinopril (Lisinopril) 20 Mg Tab 20 MG PO BID, #30 TAB 0 Refills Metoprolol Tartrate (Metoprolol Tartrate) 50 Mg Tab 50 MG PO BID, #60 TAB 0 Refills Paroxetine (Paroxetine) 20 Mg Tab 20 MG PO DAILY, #30 TAB 0 Refills Potassium Chloride ER (Potassium Chloride ER) 10 Meq Tab 10 MEQ PO BID for Electrolyte Replacement, #60 TAB 0 Refills Ranitidine (Ranitidine) 150 Mg Tab 150 MG PO BID for Heartburn Management, #60 TAB 0 Refills Umeclidinium [place] Inh (Incruse Ellipta Inh) 0.0625 Mg/Act Inh 62.5 MCG INH DAILY for Treat COPD, #1 INHALER 0 Refills Warfarin (Warfarin) 2 Mg Tab 2 MG PO SASU for Blood Clot Prevention, #30 TAB 0 Refills Warfarin (Warfarin) 3 Mg Tab 3 MG PO MTWTHF for Blood Clot Prevention, #30 TAB 0 Refills [Oxygen] () 2 LITER [place].CANULA HS Discontinued Medications: Diltiazem ER 24 HR (Cartia Xt) 120 Mg Caper 120 MG PO DAILY, #30 CAP 0 Refills Rolando Quispe MD Mar 12, 2018 08:21
[2018-03-12] MEDS ORDERED: PLAV75TA29 PO (08:23)
[2018-03-12] MEDS: LISINOPRIL 20 MG TAB PO SCH (08:32)
[2018-03-12] MEDS: POTASSIUM CHLORIDE 10 MEQ CONTROLLED RELEASE TAB PO SCH (08:32)
[2018-03-12] MEDS: METOPROLOL TARTRATE 50 MG TAB PO SCH (08:34)
--- NOTE | 2018-03-12 08:59 | PD.CAR.PN ---
CVT Progress Note Subjective/Hospital Course: 87-year-old female patient of Dr. Roly Schaeffer and Dr. Rolando Quispe intially seen 12/25/17 who has history of aortic stenosis with increasing shortness of breath and lightheadedness for the past year, worsening aortic valve area. The last aortic valve area was 0.8, mean gradient of 46, a peak gradient of 66. The patient does live alone. She is not very active. She does still drive. She uses a walker and sometimes a cane. She underwent cardiac catheterization today, which showed nonobstructive disease. She did have a 50% stenosis in the LAD with an EF of 60%. We were consulted to evaluate for aortic valve replacement versus transcatheter aortic valve replacement. Her last echo also showed moderate tricuspid regurgitation and mild mitral regurgitation. Pt was deemed a candidate for TAVR procedure PAST MEDICAL HISTORY: Paroxysmal atrial fibrillation, aortic stenosis, hypertension; she hasa dual-chamber pacemaker with tachy-nasra syndrome, history of pulmonary emboli, DVT. She has been on Eliquis. COPD, degenerative disk disease, gastroesophageal reflux disease, hyperlipidemia, hypothyroidism, osteopenia, history of transient ischemic attack. 03/11 pt admitted electively for TAVR surgery Transcatheter aortic valve replacement with a 23 Tracey 3 tissue valve Balloon aortic valvuloplasty with a 20 x 4 Brizuela balloon Bilateral percutaneous access femoral arteries with Preclose closure on right Left femoral venous access Aortography Fluoroscopy 03/12 doing well , up in chair A paced on nasal cannula Objective: GENERAL: A&O x 3 SKIN: Warm and dry. dressing to right IJ, both groins, ecchymosis to lower abdomen from lovenox injections HEAD: Normocephalic. EYES: No scleral icterus. No injection or drainage. NECK: Supple, trachea midline. No JVD or lymphadenopathy. CARDIOVASCULAR: a paced without murmurs, gallops, or rubs. RESPIRATORY: Breath sounds equal bilaterally. No accessory muscle use. GASTROINTESTINAL: Abdomen soft, non-tender, nondistended. MUSCULOSKELETAL: No cyanosis, or edema. BACK: Nontender without obvious deformity. No CVA tenderness. Vital Signs Date Time Temp Pulse Resp B/P (MAP) Pulse Ox O2 Delivery O2 Flow Rate FiO2 03/12/18 08:00 98.0 60 18 123/62 (82) 98 Arterial Line 03/12/18 07:00 63 03/12/18 04:00 97.5 60 16 126/50 (75) 98 03/12/18 04:00 60 03/12/18 03:46 99 Nasal Cannula 2.00 03/12/18 00:00 97.3 64 16 111/51 (71) 99 03/12/18 00:00 64 03/11/18 21:20 97 Nasal Cannula 3.00 03/11/18 20:00 97.6 60 20 91/52 (65) 96 03/11/18 20:00 60 03/11/18 15:15 97.8 88 18 139/62 (87) 96 154/53 (86) 03/11/18 15:15 60 03/11/18 11:20 61 18 156/78 (104) 97 Labs: Laboratory Tests Test 03/12/18 04:05 White Blood Count 12.3 TH/MM3 (4.0-11.0) Red Blood Count 2.99 MIL/MM3 (4.00-5.30) Hemoglobin 9.5 GM/DL (11.6-15.3) Hematocrit 28.1 % (35.0-46.0) Mean Corpuscular Volume 93.8 FL (80.0-100.0) Mean Corpuscular Hemoglobin 31.7 PG (27.0-34.0) Mean Corpuscular Hemoglobin Concent 33.8 % (32.0-36.0) Red Cell Distribution Width 14.7 % (11.6-17.2) Platelet Count 256 TH/MM3 (150-450) Mean Platelet Volume 8.9 FL (7.0-11.0) Blood Urea Nitrogen 19 MG/DL (7-18) Creatinine 0.77 MG/DL (0.50-1.00) Random Glucose 90 MG/DL (74-106) Calcium Level 8.2 MG/DL (8.5-10.1) Sodium Level 140 MEQ/L (136-145) Potassium Level 4.3 MEQ/L (3.5-5.1) Chloride Level 107 MEQ/L (98-107) Carbon Dioxide Level 23.8 MEQ/L (21.0-32.0) Anion Gap 9 MEQ/L (5-15) Estimat Glomerular Filtration Rate 71 ML/MIN (>89) Result Diagram: 03/12/1840403/12/18404 (1) S/p TAVR (transcatheter aortic valve replacement), bioprosthetic Plan: stable on plavix, to resume coumadin stable to transfer to stepdown, possible dc later today defer further orders to Dr Quispe (2) Aortic stenosis (3) Diastolic CHF Aurora Simmons Mar 12, 2018 08:59
[2018-03-12] MEDS ORDERED: FUROSEMIDE 20 MG TAB PO SCH (09:00)
[2018-03-12] MEDS ORDERED: DILTIAZEM-CD 120 MG CAP ER PO SCH (09:00)
[2018-03-12] MEDS ORDERED: CLOPIDOGREL 75 MG TAB PO SCH (09:00)
[2018-03-12] MEDS ORDERED: ASPIRIN 81 MG CHEW TAB PO SCH (09:00)
--- NOTE | 2018-03-12 10:54 | ECHRPT ---
Indication: CONCLUSIONS Transcatheter aortic valve bioprosthesis. BP: / HR: Rhythm: Technical Quality: Medications Complications Proc. Components The patient was brought to the diagnostic imaging area in a fasting state after o btaining an informed consent. The patient was premedicated with IV Versed and IV Fentanyl. The director of strategic communications ior pharynx was sprayed with Cetacaine spray and the patient was administered viscous Xylocaine 2 %. The AJ probe was passed into the posterior pharynx , mid-esophagus, distal esophagus, and gastric fundus. AJ was performed at multiple levels. The patient tolerated the procedure well and there were no complications. The patient was transferred to the floor in satisfactory condition.. FINDINGS LEFT VENTRICLE Normal left ventricular size. Moderate concentric left ventricular hypertrophy. The left ventricular systolic function is normal with an estimated ejection fraction in the range of 55-60%. RIGHT VENTRICLE Normal right ventricular size and systolic function. LEFT ATRIUM The left atrial size is normal. RIGHT ATRIUM The right atrial size is normal. ATRIAL SEPTUM Normal atrial septal thickness without atrial level shunting by limited color doppler interrogation. AORTA The aortic root and proximal ascending aorta are normal in size on limited imaging. MITRAL VALVE Mild mitral valve regurgitation. AORTIC VALVE Trileaflet aortic valve. Aortic valve sclerosis is present. Diffuse calcification of the aortic valve. Mild aortic valve regurgitation. Severe aortic valve stenosis. status post transcatheter aortic valve prosthesis TRICUSPID VALVE There is trace tricuspid valve regurgitation. VESSELS The inferior vena cava is normal in size. PULMONARY VALVE The pulmonary valve is not well visualized. PERICADIUM No pericardial effusion. Roalndo Quispe MD, FACC (Electronically Signed) Final Date:12 March 2018 10:53
--- NOTE | 2018-03-12 13:59 | MB ---
cc: Eugenia Langley MD,Roly Quispe,Rolando Guerin,Danielle York MD DATE: 03/12/2018 REASON FOR CONSULTATION: Evaluation status post TAVR. HISTORY OF PRESENT ILLNESS: Mrs. Angeles is an 87-year-old female with a history of COPD, tachybrady syndrome, previous pacemaker implanted with atrial fibrillation, severe aortic stenosis, status post transaortic valve replacement referred for evaluation. The chart was reviewed. The patient was evaluated. ALLERGIES: ZITHROMAX. SOCIAL HISTORY: Negative for smoking and drinking. FAMILY HISTORY: Noncontributory to her current medical condition. MEDICATIONS: She is currently on: 1. Ancef. 2. Potassium. 3. Aspirin. 4. Plavix 75 mg a day. 5. Cardizem-CD 120 mg a day. 6. Lasix. 7. Levoxyl 125 mg a day. 8. Lisinopril 20 mg a day. 9. Metoprolol 50 mg twice a day. REVIEW OF SYSTEMS: She referred no chest pain, no shortness of breath. No fever. PHYSICAL EXAMINATION: GENERAL: Alert, fully oriented, sitting on a chair, talking to her daughter. VITAL SIGNS: Blood pressure 120/55, pulse 60, respiratory rate 18. LUNGS: Ventilated. CARDIOVASCULAR: S1, S2. Regular. ABDOMEN: Soft. No masses. EXTREMITIES: No edema. ELECTROCARDIOGRAM: Atrial fibrillation and V pacing. LABORATORY DATA: Hemoglobin is 9.5. Potassium 4.3, creatinine 0.77. ASSESSMENT AND RECOMMENDATION: Mrs. Angeles is stable. The temporary pacemaker is removed. She has a permanent pacemaker in the right infraclavicular area. The patient is V-pacing. Device is well-functioning. At this point, my recommendation is to continue with current management. The patient can be discharged home whenever she its okay with the managing team. I will be available on a p.r.n. basis. Eugenia Langley MD HS/DL , 01:32 PM , 01:58 PM
[2018-03-12] MEDS ORDERED: FUROSEMIDE 20 MG/2 ML VIAL IV PUSH ONE (16:30)
--- NOTE | 2018-03-12 19:11 | EKG ---
Date Performed: 03/12/2018 Time Performed: 03:41:12 PTAGE: 87 years EKG: AV Paced Undetermined rhythm Demand atrial pacing Left axis deviation IV conduction defect Extensive infarct - age undetermined Abnormal ECG PREVIOUS TRACING : 03/11/2018 11.27 DOCTOR: Jossie Hidalgo Interpretating Date/Time 03/12/2018 19:09:53
--- NOTE | 2018-03-12 19:11 | EKG ---
Date Performed: 03/11/2018 Time Performed: 11:27:32 PTAGE: 87 years EKG: Probable AV Pacing Accelerated idioventricular rhythm. Left axis deviation IV conduction de fect Extensive infarct - age undetermined Abnormal ECG NO PREVIOUS TRACING DOCTOR: Jossie Hidalgo Interpretating Date/Time 03/12/2018 19:09:10
== END 2018-03-12 18:49 | disposition home or self-care (01) | DRG 267 ==
LOC: HSDI 03-11 10:28 → HDIC 03-11 10:28 → HCVI 03-11 15:53 → HCPC 03-12 15:53
PROVIDERS: ADMIT Internal Medicine; ATTEND Internal Medicine
PROC: B4101ZZ Fluoroscopy of Abdominal Aorta using Low Osmolar Contrast (ICD-10-PCS; 2018-03-11)
PROC: 4A023N7 Measurement of Cardiac Sampling and Pressure, Left Heart, Percutaneous Approach (ICD-10-PCS; 2018-03-11)
PROC: 02RF38Z Replacement of Aortic Valve with Zooplastic Tissue, Percutaneous Approach (ICD-10-PCS; principal; 2018-03-11 13:00)
PROC: 027F3ZZ Dilation of Aortic Valve, Percutaneous Approach (ICD-10-PCS; 2018-03-11 13:00)
PROC: B24BZZ4 Ultrasonography of Heart with Aorta, Transesophageal (ICD-10-PCS; 2018-03-11 13:00)
DX: I35.0 Nonrheumatic aortic (valve) stenosis (principal); I13.0 Hypertensive heart and chronic kidney disease with heart failure and stage 1 through stage 4 chronic kidney disease, or unspecified chronic kidney disease; C22.0 Liver cell carcinoma; I48.0 Paroxysmal atrial fibrillation; I50.30 Unspecified diastolic (congestive) heart failure; J44.9 Chronic obstructive pulmonary disease, unspecified; K21.9 Gastro-esophageal reflux disease without esophagitis; K57.90 Diverticulosis of intestine, part unspecified, without perforation or abscess without bleeding; N18.9 Chronic kidney disease, unspecified; E03.9 Hypothyroidism, unspecified; F41.9 Anxiety disorder, unspecified; M19.90 Unspecified osteoarthritis, unspecified site; I25.10 Atherosclerotic heart disease of native coronary artery without angina pectoris; I35.1 Nonrheumatic aortic (valve) insufficiency; F32.9 Major depressive disorder, single episode, unspecified; E78.5 Hyperlipidemia, unspecified; Z95.0 Presence of cardiac pacemaker; Z79.01 Long term (current) use of anticoagulants; Z86.711 Personal history of pulmonary embolism; Z87.891 Personal history of nicotine dependence; Z00.6 Encounter for examination for normal comparison and control in clinical research program; Z86.73 Personal history of transient ischemic attack (TIA), and cerebral infarction without residual deficits
CPT/HCPCS: 33210; 33361; 80048; 85002; 85027; 86920; 92986; 93005; 93312; 93320; 93325; 94150; 94640; 94664; 94667; 94668; C1760; C1769; C1893; G0269; J0171; J0690; J1644; J1940; J2370; J2710; J2720; J3010; J7030; Q9967

== ENCOUNTER 2018-01-30 06:43 | Day surgery (SDC) | payer MEDICARE ==
[2018-01-30] VITALS (8 sets, daily range): BP systolic 101–121; BP diastolic 46–69; PULSE 58–69; RESP 16–18; TEMP 97.6; O2SAT 90–96
[~2018-01-30] VITALS: Ht 157.5 cm; Wt 91.8 kg
[~2018-01-30 06:43] MED LIST changes: +ENOX30P SQ; +WARF4TAB52 PO
[2018-01-30] MEDS ORDERED: LIDOCAINE HCL 1% 10 ML VIAL OTHER ONE (06:44)
[2018-01-30] MEDS ORDERED: MIDAZOLAM HCL 2 MG/2 ML VIAL ONE (07:21)
[2018-01-30 08:06] LABS: INTERNATIONAL NORMALIZED RATIO 1.2 RATIO
--- NOTE | 2018-01-30 09:04 | PD.RAD ---
Post CT Procedure Prog Note Pre Procedure Diagnosis: (1) Liver mass, right lobe Post Procedure Diagnosis: (1) Liver mass, right lobe Procedure Date: January 30, 2018 Supervising Radiologist: Domingo Lopez Estimated blood loss: minimal. Anesthesia: Conscious Sedation Plan of Activity Patient to Unit: ROPU Patient Condition: Good See PACS Report for procedural detail/treatment Biopsy Imaging Guidance: CT Side: Right Biopsy Procedure: Liver Site: right liver segment 6 Specimen: Core Biopsy Plan to ROPU then discharge in 4 hours if no problems. Domingo Lopez MD January 30, 2018 09:04
[2018-01-30] MEDS ORDERED: HYDROmorphone HCL 2 MG TAB PO PRN (09:15)
--- NOTE | 2018-01-30 09:22 | RADRPT ---
EXAM DATE/TIME: 01/30/2018 08:39 [facility] COMPARISON: CTA TRANS AORTIC VALVE REPLACEMENT, December 25, 2017, 17:49. INDICATIONS : Liver lesion. SEDATION TIME: 30 minutes BIOPSY SITE: liver MEDICATION(S): 1.) 1.5 mg midazolam (Versed) IV 2.) 75 mcg fentanyl (Sublimaze) DEVICE(S): 1.) 20 gauge Temno core biopsy needle 2.) 19 gauge Mccall blunt needle MEDICAL HISTORY : Cardiovascular disease. Hypertension. Chronic obstructive pulmonary disease. renal stone SURGICAL HISTORY : Appendectomy. Hysterectomy. Pacemaker. ENCOUNTER: Initial ACUITY: 1 day PAIN SCORE: 0/10 LOCATION: Bilateral liver A total of five core specimen(s) were obtained and sent to the laboratory for pathologic evaluation. PROCEDURE: 1. CT guided liver biopsy. 2. Conscious sedation with continuous EKG and oximetry monitoring. 3. EKG and oximetry remained stable throughout the procedure. Prior to the procedure informed consent was obtained. Any appropriate prior imaging studies were rev iewed. Using automated exposure control and adjustment of the mA and/or kV according to patient size, radiat ion dose was kept as low as reasonably achievable to obtain optimal diagnostic quality images. DICOM format image data is available electronically for review and comparison. The site was prepped in a sterile fashion. Full sterile technique was used, including cap, mask, sean rile gloves and gown and a large sterile sheet. Hand hygiene and 2% chlorhexidine and/or betadine/al cohol prep was utilized per protocol for cutaneous antisepsis. The skin and subcutaneous tissues wer e infiltrated with local anesthetic solution. With CT guidance the hypodense right lobe liver lesion was localized. Biopsy was performed using the prescribed needle as above. Adequate hemostasis was obtained with compression at the puncture site. Follow-up CT scan reveals no hemorrhage or other acute abnormality. The patient tolerated the procedure well and there were no complications. The patient was returned to the Radiology Outpatient Unit in stable condition. CONCLUSION: Uncomplicated CT guided biopsy of the right lobe liver lesion. Domingo Lopez MD on January 30, 2018 at 9:17 Board Certified Radiologist. This report was verified electronically.
== END 2018-01-30 13:30 | disposition home or self-care (01) ==
LOC: HRAD 06:43 → HRIP 06:51 → HRAD 13:30
PROVIDERS: ATTEND Internal Medicine Gastroenterology
DX: C22.0 Liver cell carcinoma (principal); I25.10 Atherosclerotic heart disease of native coronary artery without angina pectoris; I10 Essential (primary) hypertension; J44.9 Chronic obstructive pulmonary disease, unspecified; Z95.2 Presence of prosthetic heart valve; Z01.818 Encounter for other preprocedural examination
CPT/HCPCS: 47000; 77012; 85610; 85730; 88307; 88341; 88342; 99152; 99153; J2250; J3010

== ENCOUNTER 2018-02-17 13:16 | Day surgery (SDC) | payer MEDICARE ==
[~2018-02-17 13:16] MED LIST changes: -WARF4TAB52 PO
--- NOTE | 2018-02-18 08:32 | RADRPT ---
EXAM DATE: 02/17/2018 2:26 PM EDT AGE/SEX: 87 years / Female INDICATIONS: Request consult for a microwave liver ablation. HISTORY OF PRESENT ILLNESS: 87-year-old female accompanied by her daughter and son-in-law on this vi sit. She is kindly referred for evaluation of possible locoregional therapy for hepatocellular carcin vicky. She has no history of hepatitis or significant alcohol abuse and was incidentally diagnosed with hepatic masses on CT examination performed for aortic valve replacement workup. PET/CT examination c onfirmed 2 separate masses in the liver. A 1.6 cm mass in segment 7 near the dome and a 4.5 cm mass i n segment 5 inferiorly. The segment 5 mass was subsequently biopsied confirming hepatocellular carcin vicky. She has related symptoms. Her main complaints are regarding her aortic stenosis. She does howeve r maintain an excellent functional status (ECOG 0) with intact hepatic function. TEMPERATURE: 98.1 HEART RATE: 60 BLOOD PRESSURE: 145/77 RESPIRATIONS: 16 OXIMETRY: 95 PNEUMONIA VACCINE: Y MEDICAL/SURGICAL HISTORY: ATRIAL FIBRIL ATION, AORTIC STENOSIS, Hypertension, copd, DEGENERATIVE DISC DESE ASE, GERD,TIA, Hysterectomy. Lithotripsy. SOCIAL HISTORY: SMOKING HISTORY: ALLERGIES: ZITHROMAX MEDICATIONS: LEVOTHYROXINE 125 MCG q.d. PAXIL 20 MG q.d. [id number] MEQ q.d. VITAMIN B 12 q.d. VITAMIN D 3 q.d. ALLOPURINOL 100 MG q.d. CARTIA/D ILT AZEM XT 120 q.d. FUROSEMIDE 20 MG q.d. METOPROLOL 50 MG q.d. WARA FIN q.d. IMAGING STUDIES: CT angiogram dated 12/25/2017 and PET/CT exam dated 01/14/2018 were reviewed. Examinations again demons trate a 4.5 cm mass in segment 5 and 1.6 cm mass in segment 7 with avid PET activity. No evidence for metastatic disease ASSESSMENT: 87-year-old hypofunctioning female with newly diagnosed hepatocellular carcinoma. She has severe aort ic stenosis and is awaiting aortic valve replacement for which she will need to remain on Plavix for a minimum of 3 months. She is also currently anticoagulated for atrial fibrillation history. She is n ot a surgical candidate and very high risk for general anesthesia which will be required to perform d efinitive percutaneous ablation of the hepatic masses. Her case was discussed in tumor board and cons ensus was to pursue chemoembolization procedure which can be performed with conscious sedation to all ow her sufficient time to undergo aortic repair with tentative plan is for percutaneous ablation once patient is able to temporarily discontinue antiplatelet treatment (approximately 3 months). Extended discussion with her and her family regarding risks and benefits of chemoembolization as well as the limitations of current treatment plan including uncertainty regarding disease progression. Al l questions were answered. PLAN: Superselective chemoembolization of the right hepatic masses. TIME SPENT: 30 minutes. Electronically signed by: Isael Ledesma MD 02/18/2018 8:31 AM EDT
== END 2018-02-17 16:10 | disposition home or self-care (01) ==
LOC: HROP 13:16 → HRIP 13:18 → HROP 16:10
PROVIDERS: ATTEND Internal Medicine
DX: C22.0 Liver cell carcinoma (principal); I10 Essential (primary) hypertension; I48.91 Unspecified atrial fibrillation; J44.9 Chronic obstructive pulmonary disease, unspecified; I35.0 Nonrheumatic aortic (valve) stenosis; K21.9 Gastro-esophageal reflux disease without esophagitis; Z86.73 Personal history of transient ischemic attack (TIA), and cerebral infarction without residual deficits; Z79.01 Long term (current) use of anticoagulants
CPT/HCPCS: 99213; G0463

== ENCOUNTER 2018-02-25 07:27 | Observation (INO) | payer MEDICARE ==
[2018-02-25] VITALS (11 sets, daily range): BP systolic 128–154; BP diastolic 63–75; PULSE 55–75; RESP 16–18; TEMP 97.5–97.7; O2SAT 89–99
[~2018-02-25] VITALS: Ht 154.9 cm; Wt 93.9 kg
[2018-02-25] MEDS ORDERED: NITROGLYCERIN 1000 MCG/5 ML VIAL OTHER ONE (07:28)
[2018-02-25] MEDS ORDERED: SODIUM CHLOR 0.9% 1000 ML INJ 1,000 ML IV SCH (08:00)
[2018-02-25] MEDS ORDERED: PANTOPRAZOLE SODIUM 40 MG VIAL IV PUSH ONE (08:15)
[2018-02-25] MEDS ORDERED: ONDANSETRON HCL 4 MG/2 ML VIAL IV PUSH ONE (08:15)
[2018-02-25] MEDS ORDERED: KETOROLAC TROMETHAMINE 30 MG/ML (IVP) VIAL IV PUSH ONE (08:15)
[2018-02-25] MEDS ORDERED: DEXAMETHASONE SOD PHOS 20 MG/5 ML VIAL IV PUSH ONE (08:15)
[2018-02-25] MEDS ORDERED: ceFAZolin 1,000 MG/NS 100 ML IV ONE ×2 (08:15)
[2018-02-25 08:24] LABS: AUTOMATED NEUTROPHIL # 5.9 TH/MM3 (1.8-7.7); BASOPHIL % 0.3 % (0.0-2.0); EOSINOPHIL # 0.1 TH/MM3 (0-0.4); EOSINOPHIL % 1.9 % (0.0-4.0); HEMATOCRIT 38.7 % (35.0-46.0); HEMOGLOBIN 12.8 GM/DL (11.6-15.3); LYMPHOCYTE # 1.1 TH/MM3 (1.0-4.8); MEAN CELL VOLUME 94.9 FL (80.0-100.0); MEAN CORPUSCULAR HEMOGLOBIN 31.3 PG (27.0-34.0); MEAN PLATELET VOLUME 9.3 FL (7.0-11.0); MONO % 7.6 % (0.0-8.0); MONOCYTE # 0.6 TH/MM3 (0-0.9); NEUT % 76.2 % (16.0-70.0); PLATELET COUNT 247 TH/MM3 (150-450); RED BLOOD COUNT 4.08 MIL/MM3 (4.00-5.30); RED CELL DISTRIBUTION WIDTH 14.8 % (11.6-17.2); WHITE BLOOD COUNT 7.7 TH/MM3 (4.0-11.0)
[2018-02-25 08:35] LABS: INTERNATIONAL NORMALIZED RATIO 1.1 RATIO; PROTHROMBIN TIME - PATIENT 10.9 SEC (9.8-11.6)
[2018-02-25 08:45] LABS: ALBUMIN 3.8 GM/DL (3.4-5.0); ALT (GPT) 26 U/L (10-53); AST (GOT) 26 U/L (15-37); BICARBONATE 29.5 MEQ/L (21.0-32.0); BLOOD UREA NITROGEN 15 MG/DL (7-18); CALCIUM 9.4 MG/DL (8.5-10.1); CHLORIDE 101 MEQ/L (98-107); GLOMERULAR FILTRATION RATE 47 ML/MIN (>89); GLUCOSE,RANDOM 118 MG/DL (74-106); SODIUM (NA) 141 MEQ/L (136-145)
[2018-02-25 08:46] LABS: ALKALINE PHOSPHATASE 64 U/L (45-117); TOTAL BILIRUBIN ADULT 0.4 MG/DL (0.2-1.0); TOTAL PROTEIN 7.7 GM/DL (6.4-8.2)
[2018-02-25] MEDS ORDERED: SODIUM CHLORIDE 0.9% FLUSH 10 ML FLUSH IV FLUSH PRN (09:15)
[2018-02-25] MEDS ORDERED: SODIUM BICARBONATE 154 MEQ/1000 ML NS IV SCH ×2 (09:15)
--- NOTE | 2018-02-25 12:26 | PD.PN.STU ---
Subjective Remarks 87yo wf w/ hepatocellular carcinoma awaiting chemo embolization by Dr. Lara. Family at bedside. Patient will be held in observation for the night and planned d/c for tomorrow. Pt has extensive medical hx of severe aortic stenosis requiring a TAVR, CHF, a. fibrillation, prior hx of PE, HTN, COPD, hypothyroidism. She took her last lovenox shot yesterday a.m. and will resume either tomorrow morning/ tonight depending on procedure. Pt has brought home medications to take for this evening but will require orders for lovenox. She has had no recent fevers or changes in health since her doctor visit. She is currently on oxygen. Normally she only sleeps with O2 but the exertion of getting to the hospital room cause her O2 sats to drop to the upper 80s. Objective Vitals Vital Signs Date Time Temp Pulse Resp B/P (MAP) Pulse Ox O2 Delivery O2 Flow Rate FiO2 02/25/18 08:09 93 Nasal Cannula 2.00 02/25/18 07:50 97.7 75 18 140/75 (96) 89 Result Diagram: 02/25/18 0800 02/25/18 0800 Other Results Laboratory Tests Test 02/25/18 08:00 White Blood Count 7.7 TH/MM3 Red Blood Count 4.08 MIL/MM3 Hemoglobin 12.8 GM/DL Hematocrit 38.7 % Mean Corpuscular Volume 94.9 FL Mean Corpuscular Hemoglobin 31.3 PG Mean Corpuscular Hemoglobin Concent 33.0 % Red Cell Distribution Width 14.8 % Platelet Count 247 TH/MM3 Mean Platelet Volume 9.3 FL Neutrophils (%) (Auto) 76.2 % Lymphocytes (%) (Auto) 14.0 % Monocytes (%) (Auto) 7.6 % Eosinophils (%) (Auto) 1.9 % Basophils (%) (Auto) 0.3 % Neutrophils # (Auto) 5.9 TH/MM3 Lymphocytes # (Auto) 1.1 TH/MM3 Monocytes # (Auto) 0.6 TH/MM3 Eosinophils # (Auto) 0.1 TH/MM3 Basophils # (Auto) 0.0 TH/MM3 CBC Comment DIFF FINAL Differential Comment Prothrombin Time 10.9 SEC Prothromb Time International Ratio 1.1 RATIO Activated Partial Thromboplast Time 27.5 SEC Blood Urea Nitrogen 15 MG/DL Creatinine 1.10 MG/DL Random Glucose 118 MG/DL Total Protein 7.7 GM/DL Albumin 3.8 GM/DL Calcium Level 9.4 MG/DL Alkaline Phosphatase 64 U/L Aspartate Amino Transf (AST/SGOT) 26 U/L Alanine Aminotransferase (ALT/SGPT) 26 U/L Total Bilirubin 0.4 MG/DL Sodium Level 141 MEQ/L Potassium Level 3.8 MEQ/L Chloride Level 101 MEQ/L Carbon Dioxide Level 29.5 MEQ/L Anion Gap 11 MEQ/L Estimat Glomerular Filtration Rate 47 ML/MIN Objective Remarks General - NAD, well developed, orientedx3 Pulmonary - Diminished breath sounds bilaterally, no wheezes, crackles, Pt on 3L oxygen. Cardiovascular - murmur consistent with aortic stenosis that radiates to carotids. No JVD. Nonpitting edema bilateral legs. Neuro - no focal deficits Medications and IVs Current Medications Medications (Trade) Dose Ordered Sig/Jacob Route PRN Reason Start Time Stop Time Status Last Admin Dose Admin Sodium Chloride 1,000 ml @ 30 mls/hr Q24H IV 02/25/18 08:00 Sodium Chloride 1,000 ml @ 150 mls/hr Q6H40M IV 02/25/18 08:00 Sodium Bicarbonate 154 meq/Sodium Chloride 1,000 ml @ 90 mls/hr TITRATE IV 02/25/18 09:15 02/26/18 09:14 Sodium Chloride (NS Flush) 2 ml BID IV FLUSH 02/25/18 09:30 Sodium Chloride (NS Flush) 2 ml UNSCH PRN IV FLUSH FLUSH AFTER USING IV ACCESS 02/25/18 09:15 Doxorubicin HCl 75 mg/Syringe / Bag 37.5 ml @ 0 mls/hr ONCE ONCE OTHER 02/25/18 13:30 02/25/18 13:31 A/P Assessment and Plan 1) Hepatocellular Carcinoma Awaiting embolization procedure Oncology following - Dr. Zhu 2) CHF Resume home meds tomorrow 3) Aortic Stenosis: chronic, stable 4) HTN: chronic, stable Resume home meds this evening 5) COPD: chronic, stable PRN oxygen brought home inhalers 6) Hypothyroidism: chronic, stable 7) Hx of PE resume Lovenox after procedure Telemetry SCD IwonaCarmela gómez February 25, 2018 12:26
[2018-02-25] MEDS ORDERED: ALPRAZolam 0.25 MG TAB PO PRN (12:30)
[2018-02-25] MEDS ORDERED: RESP: ALBUTEROL CONC 2.5 MG/0.5 ML NEB NEB PRN (12:30)
[2018-02-25] MEDS ORDERED: MIDAZOLAM HCL 5 MG/5 ML VIAL ONE (13:17)
[2018-02-25] MEDS ORDERED: fentaNYL CITRATE 250 MCG/5 ML AMP ONE (13:17)
[2018-02-25] MEDS ORDERED: VERAPAMIL HCL 5 MG/2 ML VIAL ONE (13:26)
[2018-02-25] MEDS ORDERED: HEPARIN SODIUM - IV 10,000 UNITS/10 ML VIAL ONE (13:26)
[2018-02-25] MEDS ORDERED: DOXORUBICIN OTHER ONE (13:30)
[2018-02-25] MEDS ORDERED: ETHIODIZED OIL (48% IODINE) 4800 MG/10 ML AMP ONE (13:31)
[2018-02-25] MEDS ORDERED: PILL SPLITTER OTHER PRN (15:00)
--- NOTE | 2018-02-25 15:42 | PD.RAD ---
Post Procedure Progress Note Pre Procedure Diagnosis: (1) Liver mass, right lobe Post Procedure Diagnosis: (1) Liver mass, right lobe Procedure Date: February 25, 2018 Supervising Radiologist: Isael Ledesma Proceduralist/Assist: Stepan Elaine RT(R), RT Alessandra(R)(CV) Anesthesia: Conscious Sedation Plan of Activity Patient to Unit: ROPU Patient Condition: Good See PACS Report for procedural detail/treatment Isael Ledesma MD February 25, 2018 15:42
[2018-02-25] MEDS ORDERED: HYDROmorphone HCL PF 0.5 MG/0.5 ML SYRINGE IV PUSH PRN (15:45)
[2018-02-25] MEDS ORDERED: RESP: ALBUTEROL 2.5 MG/3 ML NEB (SCH) ONE (16:18)
--- NOTE | 2018-02-25 16:40 | HHI.HP ---
HPI Service [facility] Hospitalists Primary Care Physician Roly Schaeffer MD Admission Diagnosis HCC Chief Complaint: HCC Travel History International Travel<30 Days: No Contact w/Intl Traveler <30 Da: No Traveled to Known Affected Are: No History of Present Illness Pt is 87 yo with hx tachy/nasra/pacemaker, copd, pe and afib on coumadin, severe AVS and now HCC. Pt was undergoing workup for TAVR with CTS and found to have liver mass. Liver bx showed HCC. Pt is here today for chemoembolization of the liver mass. She is seen in [facility] after the procedure. She is getting some medication infusions currently. She had some wheezing and hypoxia post procedure and is getting nebulizer therapy. Family is present. Will plan for d/c home tomorrow. Review of Systems Other liver mass Past Family Social History Past Medical History hepatocellular carcinoma severe AVS tachy/nasra. pm LBBB copd ckd 3 pulmonary embolism hypothyroidism diverticulosis afib anxiety gerd htn OA Hypothyroidism Anal Fissurectomy Cataract removal Partial Hysterectomy Left anjali Pacemaker Placement Lithotripsy Reported Medications Lovenox Inj (Enoxaparin Sodium) 30 Mg/0.3 Ml Syr Unknown Dose SQ DAILY Warfarin 3 Mg Tab 3 Mg PO DAILY Warfarin 2 Mg Tab 2 Mg PO DAILY Vitamin D3 (Cholecalciferol) 2,000 Unit Cap 2,000 Units PO DAILY Vitamin A28-Tihkv Acid (Cobalamine Combinations) 500-400 Mcg Tab 1,000 Mcg PO DAILY Ventolin Hfa 18 GM Inh (Albuterol Sulfate) 90 Mcg/Act Aer 2 Puff INH Q4-6H PRN Ranitidine (Ranitidine HCl) 150 Mg Tab 150 Mg PO BID Potassium Chloride ER (Potassium Chloride) 10 Meq Tab 10 Meq PO BID Paroxetine (Paroxetine HCl) 20 Mg Tab 20 Mg PO DAILY [Oxygen] 2 Liter [place].CANULA HS Metoprolol Tartrate 50 Mg Tab 50 Mg PO BID Lisinopril 20 Mg Tab 20 Mg PO BID Levothyroxine (Levothyroxine Sodium) 125 Mcg Tab 125 Mcg PO DAILY Ipratropium Waller 42 Mcg (0.06 %) [place] 0.02 Inhaler NA Q4HR Incruse Ellipta Inh (Umeclidinium Waller Inh) 0.0625 Mg/Act Inh 62.5 Mcg INH DAILY Furosemide 20 Mg Tab 20 Mg PO DAILY Cartia Xt (Diltiazem ER 24 HR) 120 Mg Caper 120 Mg PO DAILY Alprazolam 0.25 Mg Tab 0.25 Mg PO Q4H PRN Allopurinol 300 Mg Tab 100 Mg PO DAILY Albuterol Neb (Albuterol Sulfate) 2.5 Mg/0.5 Ml Neb 2.5 Mg NEB Q4HR NEB PRN Note: The Albuterol Sulfate Inhalation Solution is concentrated and must be diluted. Read complete instructions carefully before using. Allergies: Coded Allergies: azithromycin (Unverified Adverse Reaction, Severe, DIARRHEA, 02/25/18) Family History nc Social History quit smoking 40 years ago but had smoked 1.0 pack/day for 20 years. No etoh Physical Exam Vital Signs lying in bed heart reg lung leslie wheezing abd s/nt ext no edema Vital Signs Date Time Temp Pulse Resp B/P (MAP) Pulse Ox O2 Delivery O2 Flow Rate FiO2 02/25/18 15:50 97.5 59 18 150/75 (100) 93 02/25/18 08:09 93 Nasal Cannula 2.00 02/25/18 07:50 97.7 75 18 140/75 (96) 89 Laboratory Laboratory Tests Test 02/25/18 08:00 White Blood Count 7.7 Red Blood Count 4.08 Hemoglobin 12.8 Hematocrit 38.7 Mean Corpuscular Volume 94.9 Mean Corpuscular Hemoglobin 31.3 Mean Corpuscular Hemoglobin Concent 33.0 Red Cell Distribution Width 14.8 Platelet Count 247 Mean Platelet Volume 9.3 Neutrophils (%) (Auto) 76.2 Lymphocytes (%) (Auto) 14.0 Monocytes (%) (Auto) 7.6 Eosinophils (%) (Auto) 1.9 Basophils (%) (Auto) 0.3 Neutrophils # (Auto) 5.9 Lymphocytes # (Auto) 1.1 Monocytes # (Auto) 0.6 Eosinophils # (Auto) 0.1 Basophils # (Auto) 0.0 CBC Comment DIFF FINAL Differential Comment Prothrombin Time 10.9 Prothromb Time International Ratio 1.1 Activated Partial Thromboplast Time 27.5 Blood Urea Nitrogen 15 Creatinine 1.10 Random Glucose 118 Total Protein 7.7 Albumin 3.8 Calcium Level 9.4 Alkaline Phosphatase 64 Aspartate Amino Transf (AST/SGOT) 26 Alanine Aminotransferase (ALT/SGPT) 26 Total Bilirubin 0.4 Sodium Level 141 Potassium Level 3.8 Chloride Level 101 Carbon Dioxide Level 29.5 Anion Gap 11 Estimat Glomerular Filtration Rate 47 Result Diagram: 02/25/18 0800 02/25/18 0800 Caprini VTE Risk Assessment Caprini VTE Risk Assessment: Mod/High Risk (score >= 2) Caprini Risk Assessment Model Point Value = 1 Point Value = 2 Point Value = 3 Point Value = 5 Age 41-60 Minor surgery BMI > 25 kg/m2 Swollen legs Varicose veins or History of unexplained or recurrent spontaneous Oral contraceptives or hormone replacement Sepsis (< 1 month) Serious lung disease, including pneumonia (< 1 month) Abnormal pulmonary function Acute myocardial infarction Congestive heart failure (< 1 month) History of inflammatory bowel disease Medical patient at bed rest Age 61-74 Arthroscopic surgery Major open surgery (> 45 min) Laparoscopic surgery (> 45 min) Malignancy Confined to bed (> 72 hours) Immobilizing plaster cast Central venous access Age >= 75 History of VTE Family history of VTE Factor V Leiden Prothrombin [id number] Lupus anticoagulant Anticardiolipin antibodies Elevated serum homocysteine Heparin-induced thrombocytopenia Other congenital or acquired thrombophilia Stroke (< 1 month) Elective arthroplasty Hip, pelvis, or leg fracture Acute spinal cord injury (< 1 month) Prophylaxis Regimen Total Risk Factor Score Risk Level Prophylaxis Regimen 0-1 Low Early ambulation 2 Moderate Order ONE of the following: *Sequential Compression Device (SCD) *Heparin 5000 units SQ BID 3-4 Higher Order ONE of the following medications: *Heparin 5000 units SQ TID *Enoxaparin/Lovenox 40 mg SQ daily (WT < 150 kg, CrCl > 30 mL/min) *Enoxaparin/Lovenox 30 mg SQ daily (WT < 150 kg, CrCl > 10-29 mL/min) *Enoxaparin/Lovenox 30 mg SQ BID (WT < 150 kg, CrCl > 30 mL/min) AND/OR *Sequential Compression Device (SCD) 5 or more Highest Order ONE of the following medications: *Heparin 5000 units SQ TID (Preferred with Epidurals) *Enoxaparin/Lovenox 40 mg SQ daily (WT < 150 kg, CrCl > 30 mL/min) *Enoxaparin/Lovenox 30 mg SQ daily (WT < 150 kg, CrCl > 10-29 mL/min) *Enoxaparin/Lovenox 30 mg SQ BID (WT < 150 kg, CrCl > 30 mL/min) AND *Sequential Compression Device (SCD) Assessment and Plan Problem List: (1) HCC (hepatocellular carcinoma) ICD Codes: C22.0 - Liver cell carcinoma Status: Acute Plan: 1. HCC found on w/up for Severe AVS and TAVR. s/p chemoembolization of mass today by IR 2. afib and pulmonary embolism, chronic. off her coumadin 3. copd. currently pt actively wheezing. 4. htn Pt will be observed overnight for complications Her home medications will be resumed. She has been off her anticoagulation for the procedure We will schedule the duonebs secondary to wheezing. labs in AM discussed with family at bedside. (2) COPD (chronic obstructive pulmonary disease) ICD Codes: J44.9 - COPD (chronic obstructive pulmonary disease) Status: Chronic (3) Hypothyroidism ICD Codes: E03.9 - Hypothyroidism Status: Chronic (4) HTN (hypertension) ICD Codes: I10 - HTN (hypertension) Status: Chronic (5) History of pulmonary embolism ICD Codes: Z86.711 - History of pulmonary embolism Status: Chronic Ciro Alvarez MD February 25, 2018 16:40
[2018-02-25] MEDS ORDERED: RESP: ALBUTEROL 2.5 MG/IPRATROPIUM 0.5 MG NEB (PRN) NEB (16:45)
[2018-02-25] MEDS: FAMOTIDINE 20 MG TAB PO SCH (17:55)
[2018-02-25] MEDS: METOPROLOL TARTRATE 50 MG TAB PO SCH (17:55)
[2018-02-25] MEDS: RESP: ALBUTEROL 2.5 MG/IPRATROPIUM 0.5 MG NEB (SCH) NEB (20:01)
[2018-02-25] MEDS ORDERED: NON-FORMULARY DRUG (Ranitidine 150 MG) PO SCH (21:00)
[2018-02-26] VITALS: BP 180/75; PULSE 61; RESP 18; TEMP 97.5; O2SAT 94
[2018-02-26] MEDS: SODIUM CHLOR 0.9% 1000 ML INJ 1,000 ML IV SCH ×2 (00:57→10:31)
[2018-02-26] MEDS: SODIUM CHLORIDE 0.9% FLUSH 10 ML FLUSH IV FLUSH SCH ×3 (00:58→09:00)
[2018-02-26 04:00] VITALS: BP 141/65; PULSE 60; RESP 18; TEMP 97.4; O2SAT 94
[2018-02-26 05:23] LABS: BICARBONATE 30.3 MEQ/L (21.0-32.0); CALCIUM 8.9 MG/DL (8.5-10.1); CREATININE 0.97 MG/DL (0.50-1.00)
[2018-02-26] MEDS ORDERED: LEVOTHYROXINE SODIUM 125 MCG TAB PO SCH (06:00)
--- NOTE | 2018-02-26 07:33 | RADRPT ---
EXAM DATE: 02/25/2018 4:00 PM EDT AGE/SEX: 87 years / Female INDICATIONS: 87-year-old female with biopsy-proven hepatocellular carcinoma. Limited angiography colleen l be performed due to patient's history of azotemia. CLINICAL DATA: This is the patient's initial encounter. Patient reports that signs and symptoms have been present for 3 weeks and indicates a pain score of 0/10. MEDICAL/SURGICAL HISTORY: Hyperthyroidism. Chronic obstructive pulmonary disease. Congestive heart failure. Aortic valve stenosisAnxietyOsteopeniaOsteoarthritisA Fib . AnalfissurectomyBreast B iopsyCataract RemovalHand SurgeryLT Hip ReplacementRenal Lithotripsy COMPARISON: No prior [facility] exams available for comparison. FLUORO TIME (min): 22:09 IMAGE SERIES: 7 ACCESS SITE: Left radial artery SEDATION TIME (min): 60 CONTRAST (cc): 30 Visipaque (iodixanol) MEDICATION(S): 2.5mg midazolam (Versed) IV 125mcg fentanyl (Sublimaze) IV DEVICE(S): 1. Lipiodol 2. 100 um Oncozene beads loaded with 75 mg Adriamycin . . PROCEDURE : 1. Ultrasound-guided puncture of the left radial artery. 2. Conscious sedation with continuous EKG and Oximetry monitoring. 3. Selective catheter placement in the celiac artery with selective angiography 4. Subselective catheter placement in the proper hepatic artery with subselective angiography 5. Subselective catheter placement in the right hepatic artery with subselective angiography 6. Superselective embolization of right hepatic artery branches supplying segment 5 and 7 masses The risks, benefits and alternatives to the procedure were explained and verbal and written consent w as obtained. The site was prepped in sterile fashion. Full sterile technique was used, including ca p, mask, sterile gloves and gown and a large sterile sheet. Hand hygiene and 2% chlorhexidine and/or betadine/alcohol prep was utilized per protocol for cutaneous antisepsis. Sterile gel and sterile p robe cover were utilized for ultrasound guidance. The skin and subcutaneous tissues were infiltrated with local anesthetic solution. With ultrasound and fluoroscopic guidance the left radial artery was punctured and a vascular sheath was placed. 4 [place] catheter was advanced into the celiac artery and angiography was performed. Cath eter was then advanced into the proper hepatic artery and angiography was performed. Catheter was adv anced into the right hepatic artery and angiography was performed. A renegade high flow microcatheter was then advanced into the segment 7 hepatic artery branch and angiography was performed. Segment 7 mass was subsequently embolized with approximately 2 mL of lipiodol and 20% of the Oncozene beads oralia ded with 75 mg of Adriamycin to stasis. The catheter was then repositioned into the segment 5 hepatic artery branch angiography was performed. The segment 5 mass was subsequently embolized with approxim ately 3 mL of lipiodol and 30% of the Oncozene solution to stasis. Follow-up angiography was then per formed. Wires and catheters were then removed. The puncture site was closed with TR compression device and manual pressure and hemostasis was obtain ed. The patient tolerated the procedure well and there were no complications. Conscious sedation was performed with the prescribed dosages and duration as above in the presence of an independent trained radiology nurse to assist in the monitoring of the patient. EKG and oximetry remained stable throughout the procedure. FINDINGS: Standard celiac anatomy. Enhancing masses corresponding to patient's known segment 5 and se gment 7 masses in the right lobe of the liver. Superselective embolization was performed to stasis. CONCLUSION: 1. Hepatic angiography confirms hyperenhancing masses corresponding to patient's known segment 5 and segment 7 biopsy-proven hepatocellular carcinoma. 2. Superselective embolization was performed with lipiodol and 100 um Oncozene beads loaded with 75 mg of Adriamycin to stasis. PLAN: Patient will be admitted for overnight observation. Tentative plan for aortic valve replacement and reevaluation with repeat imaging in approximately 8-10 weeks. Electronically signed by: Isael Ledesma MD 02/26/2018 7:32 AM EDT
[2018-02-26] MEDS: RESP: ALBUTEROL 2.5 MG/IPRATROPIUM 0.5 MG NEB (SCH) NEB (08:00)
[2018-02-26 08:08] VITALS: BP 146/67; PULSE 60; RESP 20; TEMP 97.6; O2SAT 95
[2018-02-26 09:00] VITALS: O2SAT 94
[2018-02-26] MEDS ORDERED: PARoxetine HCL 20 MG TAB PO SCH (09:00)
[2018-02-26] MEDS ORDERED: FUROSEMIDE 20 MG TAB PO SCH (09:00)
[2018-02-26] MEDS ORDERED: UMECLIDINIUM BROMIDE 62.5 MCG INH SCH (09:00)
[2018-02-26] MEDS ORDERED: DILTIAZEM-CD 120 MG CAP ER PO SCH (09:00)
[2018-02-26] MEDS: METOPROLOL TARTRATE 50 MG TAB PO SCH (09:15)
[2018-02-26] MEDS: FAMOTIDINE 20 MG TAB PO SCH (09:15)
--- NOTE | 2018-02-26 10:23 | HHI.PR ---
Subjective Remarks eager for dc daughter asking for her lovenox bridge shot of "100mg". Objective Vitals heart reg lung scattered wheeze abds /nt ext no edema Vital Signs Date Time Temp Pulse Resp B/P (MAP) Pulse Ox O2 Delivery O2 Flow Rate FiO2 02/26/18 09:00 94 Nasal Cannula 2.00 02/26/18 08:08 97.6 60 20 146/67 (93) 95 02/26/18 04:00 97.4 60 18 141/65 (90) 94 02/26/18 00:00 97.5 61 18 180/75 (110) 94 02/25/18 20:45 Nasal Cannula 3.00 02/25/18 20:00 97.6 60 18 141/63 (89) 94 02/25/18 19:54 99 Nasal Cannula 2.00 02/25/18 18:20 64 16 138/66 (90) 99 02/25/18 17:50 64 18 128/65 (86) 95 02/25/18 17:20 64 18 135/67 (89) 94 02/25/18 16:50 64 18 138/72 (94) 97 02/25/18 16:35 60 18 151/72 (98) 97 02/25/18 16:20 55 18 154/70 (98) 97 02/25/18 16:05 61 18 150/75 (100) 98 02/25/18 15:50 97.5 59 18 150/75 (100) 93 Result Diagram: 02/25/18 0800 02/26/18 0330 A/P Problem List: (1) HCC (hepatocellular carcinoma) ICD Codes: C22.0 - Liver cell carcinoma Status: Acute Plan: 1. HCC found on w/up for Severe AVS and TAVR. s/p chemoembolization of mass today by IR 2. afib and pulmonary embolism, chronic. off her coumadin 3. copd. currently pt actively wheezing. 4. htn stable overnight eager for dc daughter at bedside..asking to resume her lovenox bridge therapy I called Dr Lara. He is ok with the lovenox and resuming coumadin. d/c home. (2) COPD (chronic obstructive pulmonary disease) ICD Codes: J44.9 - COPD (chronic obstructive pulmonary disease) Status: Chronic (3) Hypothyroidism ICD Codes: E03.9 - Hypothyroidism Status: Chronic (4) HTN (hypertension) ICD Codes: I10 - HTN (hypertension) Status: Chronic (5) History of pulmonary embolism ICD Codes: Z86.711 - History of pulmonary embolism Status: Chronic Ciro Alvarez MD February 26, 2018 10:23
[2018-02-26] MEDS ORDERED: ENOX100P SQ (10:32)
--- NOTE | 2018-02-26 10:33 | HHI.DCPOC ---
Discharge Care Plan Diagnosis: (1) HCC (hepatocellular carcinoma) Goals to Promote Your Health * To prevent worsening of your condition and complications * To maintain your health at the optimal level Directions to Meet Your Goals Take your medications as prescribed Follow your dietary instruction Follow activity as directed Keep your appointments as scheduled Take your immunizations and boosters as scheduled If your symptoms worsen call your PCP, if no PCP go to Urgent Care Center or Emergency Room Smoking is Dangerous to Your Health. Avoid second hand smoke Call the 24-hour hour crisis hotline for domestic abuse at Ciro Alvarez MD February 26, 2018 10:33
[2018-02-26 11:13] VITALS: BP 122/57; PULSE 60; RESP 20; TEMP 97.8; O2SAT 95
[2018-02-26] MEDS ORDERED: ENOXAPARIN SODIUM 100 MG/ML SYRINGE SQ ONE (11:15)
== END 2018-02-26 12:26 | disposition home or self-care (01) ==
LOC: HROP 07:27 → HRIP 07:31 → N05B 19:04 → HROP 19:11 → N05B 19:12
PROVIDERS: ADMIT Internal Medicine; ATTEND Internal Medicine
DX: C22.0 Liver cell carcinoma (principal); J44.9 Chronic obstructive pulmonary disease, unspecified; I48.91 Unspecified atrial fibrillation; Z79.01 Long term (current) use of anticoagulants; R09.02 Hypoxemia; N18.3 Chronic kidney disease, stage 3 (moderate); I13.0 Hypertensive heart and chronic kidney disease with heart failure and stage 1 through stage 4 chronic kidney disease, or unspecified chronic kidney disease; E03.9 Hypothyroidism, unspecified; K57.90 Diverticulosis of intestine, part unspecified, without perforation or abscess without bleeding; F41.9 Anxiety disorder, unspecified; K21.9 Gastro-esophageal reflux disease without esophagitis; Z95.0 Presence of cardiac pacemaker; Z79.899 Other long term (current) drug therapy; Z87.891 Personal history of nicotine dependence
CPT/HCPCS: 36247; 36248; 37243; 75726; 75774; 76937; 80048; 80053; 85025; 85610; 85730; 94640; 94664; 96420; 99152; 99153; C1769; C1884; C1887; C1894; C9113; G0378; J0690; J1100; J1644; J1650; J2250; J2405; J3010; J7030; J7613; J9000

== ENCOUNTER → 2018-03-09 | Outpatient (CLI) | payer MEDICARE ==
[~2018-03-09] MED LIST changes: +ENOX100P SQ; -ENOX30P SQ
[2018-03-09 14:36] LABS: AUTOMATED NEUTROPHIL # 9.7 TH/MM3 (1.8-7.7); BASOPHIL % 0.2 % (0.0-2.0); EOSINOPHIL # 0.2 TH/MM3 (0-0.4); EOSINOPHIL % 1.6 % (0.0-4.0); HEMATOCRIT 38.8 % (35.0-46.0); LYMPH % 13.2 % (9.0-44.0); LYMPHOCYTE # 1.6 TH/MM3 (1.0-4.8); MEAN CELL VOLUME 94.4 FL (80.0-100.0); MEAN CORPUSCULAR HEMOGLOBIN 31.6 PG (27.0-34.0); MEAN CORPUSCULAR HGB CONC 33.5 % (32.0-36.0); MEAN PLATELET VOLUME 8.9 FL (7.0-11.0); MONO % 6.1 % (0.0-8.0); MONOCYTE # 0.7 TH/MM3 (0-0.9); NEUT % 78.9 % (16.0-70.0); PLATELET COUNT 414 TH/MM3 (150-450); RED BLOOD COUNT 4.11 MIL/MM3 (4.00-5.30); RED CELL DISTRIBUTION WIDTH 14.6 % (11.6-17.2); WHITE BLOOD COUNT 12.3 TH/MM3 (4.0-11.0)
[2018-03-09 14:44] LABS: BICARBONATE 29.4 MEQ/L (21.0-32.0); CALCIUM 9.6 MG/DL (8.5-10.1); CREATININE 1.25 MG/DL (0.50-1.00)
[2018-03-09 14:46] LABS: INTERNATIONAL NORMALIZED RATIO 1.3 RATIO
== END ==
LOC: CPRE 13:52
PROVIDERS: ATTEND Internal Medicine
DX: Z01.812 Encounter for preprocedural laboratory examination (principal); I35.0 Nonrheumatic aortic (valve) stenosis
CPT/HCPCS: 80048; 85025; 85610; 86850; 86900; 86901

== ENCOUNTER 2018-03-19 16:40 | Emergency (ER) | payer MEDICARE ==
[~2018-03-19] VITALS: Ht 157.5 cm; Wt 90.0 kg
[~2018-03-19 16:40] MED LIST changes: -CART120C PO; -ENOX100P SQ; +PLAV75TA29 PO
[2018-03-19 17:09] VITALS: BP 122/58; PULSE 75; RESP 20; TEMP 98.6
[2018-03-19] MEDS ORDERED: GELATIN 12 MM/7 MM FOAM TOPICAL ONE (19:45)
--- NOTE | 2018-03-19 19:49 | PD ---
HPI Chief Complaint: Bleeding Time Seen by Provider: 19:42 Travel History International Travel<30 days: No Contact w/Intl Traveler<30days: No Traveled to known affect area: No History of Present Illness HPI Patient has noted bleeding from her lower left jaw gums, slow oozing that does not seem to stop. The patient is on Plavix and Coumadin. The patient has been using gauze pressure on and once the bleeding stops. The patient goes ahead and pulls on the clot that started to form and she starts to bleed all over again. Allergy to azithromycin Past medical history significant for hypothyroid, bilateral cataract surgery, atrial fibrillation, pacemaker, valvular replacement T AVR, patient is on Plavix and warfarin, hypercholesterolemia, hypertension, COPD, appendectomy, hysterectomy, kidney stones PFSH Past Medical History Hx Anticoagulant Therapy: Yes (plavix and warfran) Arthritis: Yes Asthma: Yes Heart Rhythm Problems: Yes (PT THINKS BRADYCARDIA) Cancer: Yes (LIVER) Cardiac Catheterization: Yes (11/2017) Cardiovascular Problems: Yes (AFIB) High Cholesterol: Yes Chemotherapy: Yes (01/2018) Chest Pain: No Congestive Heart Failure: No COPD: Yes (PT DENIES) Diabetes: No Endocrine: Yes Gastrointestinal Disorders: Yes (ACID REFLUX) Genitourinary: Yes (HX OF KIDNEY STONES) Hepatitis: No Hiatal Hernia: No Hypertension: Yes Immune Disorder: No Kidney Stones: Yes (removed with rib 1980) Musculoskeletal: Yes (OSTEOARTHRITIS, LOWER BACK PROBLEMS, HIP AND KNEE PROBLEMS) Neurologic: No Psychiatric: No Reproductive: No Immunizations Current: Yes Thyroid Disease: Yes ?: Not Menopausal: Yes Past Surgical History Abdominal Surgery: Yes (LIVER BIOPSY 01/2018) Appendectomy: Yes Cardiac Surgery: Yes (PACEMAKER 08/2012, TAVR 02/2018) Eye Surgery: Yes (BILATERAL CATARACT SX) Genitourinary Surgery: Yes (KIDNEY STONE REMOVED 1979) Gynecologic Surgery: Yes (hysterectomy) Hysterectomy: Yes (age 38) Joint Replacement: No Pacemaker: Yes Other Surgery: Yes (CHEMO EMBOLIZATION OF LIVER SPOTS 01/2018) Social History Alcohol Use: No Tobacco Use: No Substance Use: No Allergies-Medications (Allergen,Severity, Reaction): Coded Allergies: azithromycin (Unverified Adverse Reaction, Severe, DIARRHEA, 02/25/18) Reported Meds & Prescriptions Reported Meds & Active Scripts Active Plavix (Clopidogrel Bisulfate) 75 Mg Tab 75 Mg PO DAILY Reported Warfarin 3 Mg Tab 3 Mg PO MTWTHF Warfarin 2 Mg Tab 2 Mg PO SASU Vitamin D3 (Cholecalciferol) 2,000 Unit Cap 2,000 Units PO DAILY Vitamin Q65-Oxcng Acid (Cobalamine Combinations) 500-400 Mcg Tab 1,000 Mcg PO DAILY Ventolin Hfa 18 GM Inh (Albuterol Sulfate) 90 Mcg/Act Aer 2 Puff INH Q4-6H PRN Ranitidine (Ranitidine HCl) 150 Mg Tab 150 Mg PO BID Potassium Chloride ER (Potassium Chloride) 10 Meq Tab 10 Meq PO BID Paroxetine (Paroxetine HCl) 20 Mg Tab 20 Mg PO DAILY [Oxygen] 2 Liter [place].CANULA HS Metoprolol Tartrate 50 Mg Tab 50 Mg PO BID Lisinopril 20 Mg Tab 20 Mg PO BID Levothyroxine (Levothyroxine Sodium) 125 Mcg Tab 125 Mcg PO DAILY Ipratropium [place] 42 Mcg (0.06 %) [place] 0.02 Inhaler NA Q4HR Incruse Ellipta Inh (Umeclidinium [place] Inh) 0.0625 Mg/Act Inh 62.5 Mcg INH DAILY Furosemide 20 Mg Tab 20 Mg PO DAILY Alprazolam 0.25 Mg Tab 0.25 Mg PO Q4H PRN Allopurinol 300 Mg Tab 100 Mg PO DAILY Albuterol Neb (Albuterol Sulfate) 2.5 Mg/0.5 Ml Neb 2.5 Mg NEB Q4HR NEB PRN Note: The Albuterol Sulfate Inhalation Solution is concentrated and must be diluted. Read complete instructions carefully before using. Review of Systems General / Constitutional: No: Fever Eyes: No: Visual changes HENT: Positive: Gingival Bleeding Cardiovascular: No: Chest Pain or Discomfort Respiratory: No: Shortness of Breath Gastrointestinal: No: Abdominal Pain Genitourinary: No: Dysuria Musculoskeletal: No: Pain Skin: No Rash Neurologic: No: Weakness Psychiatric: No: Depression Endocrine: No: Polydipsia Hematologic/Lymphatic: No: Easy Bruising Physical Exam Narrative GENERAL: SKIN: Warm and dry. HEAD: Atraumatic. Normocephalic. EYES: Pupils equal and round. No scleral icterus. No injection or drainage. ENT: No nasal bleeding or discharge. Mucous membranes pink and moist.... Slow steady nonpulsatile bleeding from the left mandibular molar region. NECK: Trachea midline. No JVD. CARDIOVASCULAR: Regular rate and rhythm. RESPIRATORY: No accessory muscle use. Clear to auscultation. Breath sounds equal bilaterally. GASTROINTESTINAL: Abdomen soft, non-tender, nondistended. MUSCULOSKELETAL: Extremities without clubbing, cyanosis, or edema. No obvious deformities. NEUROLOGICAL: Awake and alert. No obvious cranial nerve deficits. Motor grossly within normal limits. Five out of 5 muscle strength in the arms and legs. Normal speech. PSYCHIATRIC: Appropriate mood and affect; insight and judgment normal. Data Data Last Documented VS Vital Signs Date Time Temp Pulse Resp B/P (MAP) Pulse Ox O2 Delivery O2 Flow Rate FiO2 03/19/18 17:09 98.6 75 20 122/58 (79) Orders Orders Gelatin 12 Mm/7 Mm Top (Gelfoam 12 Mm/7 (03/19/18 19:45) Silver Nitrate Applicators (Silver Nitra (03/19/18 20:00) Ed Discharge Order (03/19/18 20:48) MDM Medical Decision Making Medical Screen Exam Complete: Yes Emergency Medical Condition: Yes Medical Record Reviewed: Yes Differential Diagnosis Gingival bleeding nontraumatic, spontaneous due to anticoagulation. No further differential required Narrative Course Bleeding control was performed, no additional INR testing was performed since the patient just had one done earlier today at [facility] in which she had a INR 1.5. Patient is also scheduled to have a repeat INR performed tomorrow. Patient's bleeding was locally controlled and patient will be discharged Procedures Procedure Narrative Using a Yankauer for suction area was maintained as clear as possible and using silver nitrate locally applied to the gum area that was bleeding. This was then covered by Gelfoam and a pressure dressing placed inside the mucosal aspect of gum to try and get the patient to stop removing the clot with her tongue..... Please see NADJA Rod's note for additional details Diagnosis Primary Impression: Gingival bleeding spontaneous secondary to Plavix and warfarin Additional Impression: Bleeding controlled using Gelfoam and silver nitrate Patient Instructions: General Instructions Disposition: 01 DISCHARGE HOME Condition: Stable Luigi Sky MD Mar 19, 2018 19:49
[2018-03-19] MEDS ORDERED: SILVER NITR/POTASSIUM NITRATE APPLICATORS TOPICAL ONE (20:00)
--- NOTE | 2018-03-19 20:40 | PD ---
Physical Exam Date Seen by Provider: Mar 19, 2018 Time Seen by Provider: 20:38 Narrative I was asked by Dr. Sky to see this 87-year-old female with an ongoing bleeder to the left lower jaw. Patient is noted to be on Coumadin and Plavix status post recent heart valve replacement. Please see my procedure note. Data Data Last Documented VS Vital Signs Date Time Temp Pulse Resp B/P (MAP) Pulse Ox O2 Delivery O2 Flow Rate FiO2 03/19/18 17:09 98.6 75 20 122/58 (79) Orders Orders Gelatin 12 Mm/7 Mm Top (Gelfoam 12 Mm/7 (03/19/18 19:45) Silver Nitrate Applicators (Silver Nitra (03/19/18 20:00) MDM Medical Record Reviewed: Yes Supervised Visit with DOMINGO: Yes Procedures Procedure Narrative The area in question in the left lower jaw shows a small what appears to be a venous bleeder to the top of the gumline where the patient is to have her first and second molars. The area is dried and silver nitrate applied with slowing of the bleeding. Gelfoam was then placed with secondary gauze placed. The patient was monitored for 30 minutes in no further bleeding is noted. Patient tolerated the procedure very well. Please see Dr. Sky's note for discharge instructions. Diagnosis Primary Impression: Gingival bleeding spontaneous secondary to Plavix and warfarin Additional Impression: Bleeding controlled using Gelfoam and silver nitrate Patient Instructions: General Instructions Disposition: 01 DISCHARGE HOME Condition: Stable Harvinder Smith Mar 19, 2018 20:40
== END 2018-03-19 21:15 | disposition home or self-care (01) ==
LOC: NEPC 16:40
DX: R58 Hemorrhage, not elsewhere classified (principal); E03.9 Hypothyroidism, unspecified; E78.00 Pure hypercholesterolemia, unspecified; I10 Essential (primary) hypertension; J44.9 Chronic obstructive pulmonary disease, unspecified; M19.90 Unspecified osteoarthritis, unspecified site; J45.909 Unspecified asthma, uncomplicated; I48.91 Unspecified atrial fibrillation; K21.9 Gastro-esophageal reflux disease without esophagitis; Z87.442 Personal history of urinary calculi; Z79.01 Long term (current) use of anticoagulants; Z79.51 Long term (current) use of inhaled steroids; Z79.899 Other long term (current) drug therapy; Z88.8 Allergy status to other drugs, medicaments and biological substances
CPT/HCPCS: 99283